=== PATIENT | male | born 1980 | race Caucasian/White ===

== ENCOUNTER 2017-04-15 03:37 | Observation (INO) | payer OTHER ==
[2017-04-15] MEDS ORDERED: LORazepam 2 MG/ML INJ IV STA (03:57)
--- NOTE | 2017-04-15 04:02 | ED ---
General Adult HPI - General Chief complaint: Seizure Stated complaint: Seizure Time Seen by Provider: 04/15/17 03:40 Source: patient, family, EMS, RN notes reviewed Mode of arrival: EMS Limitations: altered mental status, physical limitation - History of Present Illness Initial comments: Patient is a pleasant 37-year-old male presenting to the emergency Department with seizure. Patient was drinking alcohol earlier. Patient had an episode of vomiting and seizure. Family believes patient did hit his head once or twice. Patient does have a history of chronic seizures. Patient states he has seizures once or twice daily. Patient states he was taken off seizure medication. Patient states later that he took himself off seizure medication. Patient states he has not taken his medication in quite a while. Patient does have chronic pain on a fall 6 years ago. Patient has a history of neck problems. Patient states he cannot move his legs. EMS reports that they did witness patient moving his legs on his own. Patient originally denies any history of drug use. Patient and family later state that he has not used drugs in a year. - Related Data Home Medications Medication Instructions Recorded Confirmed DULoxetine HCL 60 mg PO DAILY 09/20/13 12/16/14 HYDROcodone/APAP 10-325MG [[place] 1 each PO BID PRN 09/20/13 12/16/14 10] Diazepam [Valium] 1 tab PO TID 12/16/14 12/16/14 QUEtiapine FUMARATE 1 tab PO HS 12/16/14 12/16/14 Allergies Allergy/AdvReac Type Severity Reaction Status Date / Time No Known Allergies Allergy Verified 12/16/14 19:55 Review of Systems ROS Statement: Those systems with pertinent positive or pertinent negative responses have been documented in the HPI. ROS Other: All systems not noted in ROS Statement are negative. Constitutional: Denies: fever Eyes: Denies: eye pain ENT: Denies: ear pain Respiratory: Denies: cough Cardiovascular: Denies: chest pain Endocrine: Denies: fatigue Gastrointestinal: Denies: abdominal pain Genitourinary: Denies: dysuria Musculoskeletal: Denies: back pain Skin: Denies: rash Neurological: Reports: confusion Past Medical History Past Medical History: Seizure Disorder Additional Past Medical History / Comment(s): closed head injury. back pain. ankle fracture bilateral History of Any Multi-Drug Resistant Organisms: None Reported Additional Past Surgical History / Comment(s): cervical disc fusion. Past Psychological History: Anxiety, Depression Smoking Status: Current every day smoker Past Alcohol Use History: None Reported Past Drug Use History: Marijuana General Exam Limitations: altered mental status, physical limitation General appearance: alert, in no apparent distress Head exam: Present: normocephalic, other (Mild tenderness to the back of the head) Eye exam: Present: normal appearance, PERRL, EOMI, nystagmus ENT exam: Present: normal oropharynx Neck exam: Present: normal inspection. Absent: tenderness Respiratory exam: Present: normal lung sounds bilaterally Cardiovascular Exam: Present: regular rate, normal rhythm GI/Abdominal exam: Present: soft. Absent: tenderness Extremities exam: Present: normal inspection Neurological exam: Present: alert, altered, CN II-XII intact Expanded Neurological exam: Present: protecting the airway, other (Patient states he cannot feel or move his legs. Patient does withdrawal to pain from each extremity.) Patient oriented to: Present: person. Absent: place, time Cranial nerves: EOM's Intact: Normal Sensory exam: Upper Extremity Light Touch: Normal Motor strength exam: RUE: 5, LUE: 5 Eye Response: (4) open spontaneously Motor Response: (6) obeys commands Verbal Response: (4) confused conversation Psychiatric exam: Present: normal affect, normal mood Skin exam: Present: normal color Course Vital Signs 04/15/17 04/15/17 04/15/17 03:42 04:25 05:04 Pulse Rate 118 H 100 90 Respiratory 18 18 18 Rate Blood Pressure 141/74 129/78 115/61 O2 Sat by Pulse 96 97 98 Oximetry EKG Findings - EKG Comments: EKG Findings:: Sinus tachycardia 108. AK 162. QRS 98. QT 366. QTc 490. Normal axis. Normal QRS. No acute ST change. Medical Decision Making - Medical Decision Making Patient reevaluated and remains postictal. Family is present. Patient denies any new back pain. Reexamine of the back still reveals no tenderness. Still unable to fully assess strength and sensation of the legs. Patient does move legs however does not feel he is moving them normally. Case was discussed in detail with Dr. Bob, who will admit his patient. Neurology will be consulted. Patient will be started on Dilantin. - Lab Data Result diagrams: 04/15/17 03:53 04/15/17 03:53 Lab Results 04/15/17 04/15/17 04/15/17 Range/Units 03:53 03:53 03:53 WBC 17.2 H (3.8-10.6) k/uL RBC 4.80 (4.30-5.90) m/uL Hgb 15.7 (13.0-17.5) gm/dL Hct 44.5 (39.0-53.0) % MCV 92.7 (80.0-100.0) fL MCH 32.7 (25.0-35.0) pg MCHC 35.3 (31.0-37.0) g/dL RDW 13.5 (11.5-15.5) % Plt Count 274 (150-450) k/uL Neutrophils % 88 % Lymphocytes % 7 % Monocytes % 4 % Eosinophils % 0 % Basophils % 0 % Neutrophils # 15.0 H (1.3-7.7) k/uL Lymphocytes # 1.2 (1.0-4.8) k/uL Monocytes # 0.7 (0-1.0) k/uL Eosinophils # 0.1 (0-0.7) k/uL Basophils # 0.0 (0-0.2) k/uL Sodium 140 (137-145) mmol/L Potassium 4.3 (3.5-5.1) mmol/L Chloride 105 (98-107) mmol/L Carbon Dioxide 20 L (22-30) mmol/L Anion Gap 15 mmol/L BUN 13 (9-20) mg/dL Creatinine 1.30 H (0.66-1.25) mg/dL Est GFR (MDRD) Af Amer >60 (>60 ml/min/1.73 sqM) Est GFR (MDRD) Non-Af >60 (>60 ml/min/1.73 sqM) Glucose 107 H (74-99) mg/dL Calcium 9.0 (8.4-10.2) mg/dL Total Bilirubin 0.3 (0.2-1.3) mg/dL AST 31 (17-59) U/L ALT 36 (21-72) U/L Alkaline Phosphatase 51 (38-126) U/L Total Protein 6.6 (6.3-8.2) g/dL Albumin 4.1 (3.5-5.0) g/dL Urine Color Light Yellow Urine Appearance Clear (Clear) Urine pH 5.5 (5.0-8.0) Ur Specific [place] 1.005 (1.001-1.035) Urine Protein Negative (Negative) Urine Glucose (UA) Negative (Negative) Urine Ketones Negative (Negative) Urine Blood Negative (Negative) Urine Nitrite Negative (Negative) Urine Bilirubin Negative (Negative) Urine Urobilinogen <2.0 (<2.0) mg/dL Ur Leukocyte Esterase Negative (Negative) Urine Opiates Screen Not Detected (NotDetected) Ur Oxycodone Screen Not Detected (NotDetected) Urine Methadone Screen Not Detected (NotDetected) Ur Propoxyphene Screen Not Detected (NotDetected) Ur Barbiturates Screen Not Detected (NotDetected) U Tricyclic Antidepress Not Detected (NotDetected) Ur Phencyclidine Scrn Not Detected (NotDetected) Ur Amphetamines Screen Not Detected (NotDetected) U Methamphetamines Scrn Not Detected (NotDetected) U Benzodiazepines Scrn Detected H (NotDetected) Urine Cocaine Screen Not Detected (NotDetected) U Marijuana (THC) Screen Detected H (NotDetected) Serum Alcohol 107 mg/dL - Radiology Data Radiology results: report reviewed (Computed tomography scan of the brain and cervical spine show no acute process.) Disposition Clinical Impression: Generalized seizure Disposition: ADMITTED IP TO THIS [facility] Referrals: Vicente Bob MD [Primary Care Provider] - 1-2 days Decision Time: 05:41
[2017-04-15 04:29] LABS: Basophils % (A) 0 %; Eosinophils # (A) 0.1 k/uL (0-0.7); Eosinophils % (A) 0 %; HCT 44.5 % (39.0-53.0); HGB 15.7 gm/dL (13.0-17.5); Lymphocytes # (A) 1.2 k/uL (1.0-4.8); Lymphocytes % (A) 7 %; MCH 32.7 pg (25.0-35.0); MCHC 35.3 g/dL (31.0-37.0); MCV 92.7 fL (80.0-100.0); Mean Platelet Volume 7.5; Monocytes # (A) 0.7 k/uL (0-1.0); Monocytes % (A) 4 %; Neutrophils % (A) 88 %; Platelet Count 274 k/uL (150-450); RDW 13.5 % (11.5-15.5); WBC 17.2 k/uL (3.8-10.6)
[2017-04-15 04:35] LABS: Appearance,Urine Clear (Clear); Bilirubin,Urine Negative (Negative); Blood,Urine Negative (Negative); Color,Urine Light Yellow; Glucose,Urine (UA) Negative (Negative); Ketones,Urine Negative (Negative); Leukocyte Esterase,Urine Negative (Negative); Nitrite,Urine Negative (Negative); PH, Urine 5.5 (5.0-8.0); Protein,Urine Negative (Negative); Specific Gravity,Urine 1.005 (1.001-1.035); Urobilinogen,Urine <2.0 mg/dL (<2.0)
[2017-04-15 04:40] LABS: ALT 36 U/L (21-72); AST 31 U/L (17-59); Albumin 4.1 g/dL (3.5-5.0); Alkaline Phosphatase 51 U/L (38-126); Anion Gap 15 mmol/L; Blood Urea Nitrogen 13 mg/dL (9-20); Carbon Dioxide 20 mmol/L (22-30); Chloride 105 mmol/L (98-107); Glucose 107 mg/dL (74-99); Potassium 4.3 mmol/L (3.5-5.1); Sodium 140 mmol/L (137-145); Total Bilirubin 0.3 mg/dL (0.2-1.3); Total Protein 6.6 g/dL (6.3-8.2)
--- NOTE | 2017-04-15 04:40 | CT ---
EXAM: CT Head Without Intravenous Contrast CLINICAL HISTORY: Reason: seizure TECHNIQUE: Axial computed tomography images of the head/brain without intravenous contrast. CTDI is 57.4 mGy and DLP is 511.2 mGy-cm. This CT exam was performed using one or more of the following dose reduction techniques: automated exposure control, adjustment of the mA and/or kV according to patient size, and/or use of iterative reconstruction technique. COMPARISON: MRI dated 08/03/15 FINDINGS: Brain: Unremarkable. No hemorrhage. No significant white matter disease. No edema. Ventricles: Unremarkable. No ventriculomegaly. Bones/joints: Unremarkable. No acute fracture. Soft tissues: Unremarkable. Sinuses: Mild mucosal thickening in the maxillary sinuses bilaterally. Mastoid air cells: Unremarkable as visualized. No mastoid effusion. IMPRESSION: No acute findings. EXAM: CT Cervical Spine Without Intravenous Contrast CLINICAL HISTORY: Reason: seizure TECHNIQUE: Axial computed tomography images of the cervical spine without intravenous contrast. CTDI is mGy and DLP is mGy-cm. This CT exam was performed using one or more of the following dose reduction techniques: automated exposure control, adjustment of the mA and/or kV according to patient size, and/or use of iterative reconstruction technique. COMPARISON: None FINDINGS: Vertebrae: Unremarkable. No acute fracture. Discs/spinal canal/neural foramina: Status post anterior cervical disc fusion at the C6-C7 level without evidence of hardware Occasion. Moderate severe degenerative disc disease at C5-C6 No spinal canal stenosis. Soft tissues: Unremarkable. Lung apices: Unremarkable as visualized. IMPRESSION: No acute fracture or subluxation. Status post anterior cervical disc fusion at C6-C7 without evidence of hardware complication.
[2017-04-15 04:49] LABS: Alcohol 107 mg/dL
[2017-04-15 04:50] LABS: Amphetamine Screen,Urine Not Detected (NotDetected); Barbiturate Screen,Urine Not Detected (NotDetected); Benzodiazepines Screen,Urine Detected (NotDetected); Cocaine Screen,Urine Not Detected (NotDetected); Methadone Screen, Urine Not Detected (NotDetected); Opiate Screen,Urine Not Detected (NotDetected); Oxycodone Screen, Urine Not Detected (NotDetected); Phencyclidine Screen,Urine Not Detected (NotDetected); Tricyclic Antidepressant,Urine Not Detected (NotDetected); Urn Cannabinoid Scrn Detected (NotDetected)
[2017-04-15] MEDS ORDERED: LORazepam 2 MG/ML INJ IV PRN (05:42)
[2017-04-15] MEDS ORDERED: NALOXONE 0.4 MG/ML 1 ML VIAL IV PRN (05:42)
[2017-04-15] MEDS ORDERED: PHENYTOIN SODIUM INJ 1,000 MG in SODIUM CHLORIDE 0.9% 100 ML IVPB STA (05:44)
[2017-04-15] MEDS: SODIUM CHLORIDE 0.9% 1,000 ML IV SCH (06:01)
--- NOTE | 2017-04-15 07:05 | CT ---
EXAM: CT Lumbar Spine Without Intravenous Contrast CLINICAL HISTORY: Seizure, leg weakness TECHNIQUE: Axial computed tomography images of the lumbar spine without intravenous contrast. DLP is 1034.80 mGy-cm. This CT exam was performed using one or more of the following dose reduction techniques: automated exposure control, adjustment of the mA and/or kV according to patient size, and/or use of iterative reconstruction technique. COMPARISON: No relevant prior studies available. FINDINGS: Vertebrae: Mild posterior facet hypertrophy seen. No acute fracture. Discs/spinal canal/neural foramina: No acute findings. No spinal canal stenosis. Soft tissues: Unremarkable. Kidneys and ureters: Punctate nonobstructing nephrolithiasis is seen bilaterally. IMPRESSION: No acute findings. MRI of the lumbar spine may be obtained for further evaluation, if clinically indicated.
[2017-04-15] MEDS: NICOTINE 21MG/24HR PATCH TRANSDERM SCH (09:21)
[2017-04-15] MEDS ORDERED: HYDROcodone/APAP 5-325MG 1 EACH TAB PO STA (11:11)
[2017-04-15] MEDS ORDERED: PREGABALIN 50 MG CAP PO SCH (12:00)
[2017-04-15] MEDS: FLUoxetine HCL 20 MG CAP PO SCH (12:52)
[2017-04-15] MEDS: IBUPROFEN 800 MG TAB PO PRN (12:52)
[2017-04-15] MEDS ORDERED: levETIRAcetam IV 1,000 MG in SALINE 1 100ML.BAG IVPB STA (14:24)
--- NOTE | 2017-04-15 14:42 | P.CONS ---
History of Present Illness - Reason for Consult Consult date: 04/15/17 Seizures - Chief Complaint seizures - History of Present Illness This is a pleasant 37-year-old male being evaluated by the neurology service for seizures. Sometime yesterday he had a couple drinks which he says he is not accustomed to. He started to have episodes of vomiting and dry heaves. He went into his bathroom. He was found on the floor by his and family members having a generalized tonic-clonic type seizure. The [facility] emergency room and he was quite postictal. There was some question of possible head and cervical injury. His CT of the head was negative. CT of the neck showed his known C6 7 fusion and C5 6 moderate disc displacement. There was no cervical some gnosis. There was no fracture. CT of the lumbar spine showed some mild facet joint arthropathy with no acute abnormalities. He has had no seizure activity since admission. He gives a history of a fall in 2010 at which time most of his medical problems started. Since then he has been diagnosed with PTSD and bipolar disorder. He has had surgeries of the cervical spine from Dr. Pepe Mariano in 2012 and 2014. He does have some residual left arm numbness and tingling occasionally. He says he was seen last month by a surgeon at [facility] and is considering another cervical surgery. For his seizures she has been tried on multiple seizure medications. He and his describe his seizures as a generalized type. He has symptoms which are consistent with nonconvulsive type about once a week, and convulsive types 3 or 4 times a year. He stopped all seizure medications a few months back and has recently been restarted on Topamax. He stopped this because of some possible confusion he was having on it. More recently he has been started on Lyrica 50 mg once a day and is tolerating that well. He was started on some Dilantin in the emergency room, but his says she thinks she had a problem with this medication. At the time of my exam he is resting comfortably in bed in no acute distress. Review of Systems All systems: negative Constitutional: Reports as per HPI Past Medical History Past Medical History: Seizure Disorder Additional Past Medical History / Comment(s): closed head injury. back pain. ankle fracture bilateral. Cervical fusion. PTSD. Bipolar disorder History of Any Multi-Drug Resistant Organisms: None Reported Additional Past Surgical History / Comment(s): cervical disc fusion. Past Psychological History: Anxiety, Bipolar, Depression, PTSD Smoking Status: Current every day smoker Past Alcohol Use History: None Reported, Occasional Past Drug Use History: Marijuana Medications and Allergies Home Medications Medication Instructions Recorded Confirmed Type Amitriptyline HCl [Elavil] 25 mg PO HS 04/15/17 04/15/17 History FLUoxetine HCL [PROzac] 40 mg PO DAILY 04/15/17 04/15/17 History Ibuprofen [Motrin] 800 mg PO TID PRN 04/15/17 04/15/17 History Meclizine [Antivert] 25 mg PO DAILY PRN 04/15/17 04/15/17 History Pregabalin [Lyrica] 50 mg PO DAILY 04/15/17 04/15/17 History Topiramate [Topamax] 25 mg PO BID 04/15/17 04/15/17 History Allergies Allergy/AdvReac Type Severity Reaction Status Date / Time No Known Allergies Allergy Verified 12/16/14 19:55 Physical Exam Vitals: Vital Signs Temp Pulse Pulse Resp BP BP Pulse Ox 04/15/17 07:00 97.0 F L 86 20 120/73 99 04/15/17 06:01 82 16 119/64 98 04/15/17 05:04 90 18 115/61 98 04/15/17 04:25 100 18 129/78 97 04/15/17 03:42 118 H 18 141/74 96 Intake and Output 04/14/17 04/15/17 04/15/17 22:59 06:59 14:59 Output Total 350 Balance -350 Output: Urine 350 Other: Weight 99.79 kg - Constitutional General appearance: average body habitus, cooperative, no acute distress - EENT Eyes: no abnormal pupil, EOMI, PERRLA, no ptosis ENT: hearing grossly normal - Neck Neck: normal ROM, no rigidity - Respiratory Respiratory: negative: prolonged expiration, prolonged inspiration - Cardiovascular Rhythm: regular - Gastrointestinal General gastrointestinal: no distended, no tenderness - Neurologic Patient is alert awake and oriented 3. Speech and language are normal. There is no facial asymmetry. Strength is full in bilateral upper lower extremities. There is a mild sensory deficit to his distal left upper extremity which is chronic, otherwise sensory exam is normal. There is no pronator drift. No tremors or seizure-like activities are seen. Results CBC & Chem 7: 04/15/17 03:53 04/15/17 03:53 Labs: Abnormal Lab Results - Last 24 Hours (Table) 04/15/17 04/15/17 04/15/17 Range/Units 03:53 03:53 03:53 WBC 17.2 H (3.8-10.6) k/uL Neutrophils # 15.0 H (1.3-7.7) k/uL Carbon Dioxide 20 L (22-30) mmol/L Creatinine 1.30 H (0.66-1.25) mg/dL Glucose 107 H (74-99) mg/dL U Benzodiazepines Scrn Detected H (NotDetected) U Marijuana (THC) Screen Detected H (NotDetected) Assessment and Plan (1) Cervicalgia Current Visit: Yes Status: Chronic Code(s): M54.2 - CERVICALGIA SNOMED Code(s): 26976043 (2) Failed cervical fusion Current Visit: Yes Status: Chronic Code(s): T84.9XXA - UNSP COMP OF INTERNAL ORTHOPEDIC PROSTH DEV/GRFT, INIT SNOMED Code(s): 1201627 (3) Hx of migraines Current Visit: Yes Status: Chronic Code(s): Z86.69 - PERSONAL HISTORY OF DIS OF THE NERVOUS SYS AND SENSE ORGANS SNOMED Code(s): 424653991 (4) Chronic pain Current Visit: Yes Status: Chronic Code(s): G89.29 - OTHER CHRONIC PAIN SNOMED Code(s): 55467475 (5) PTSD (post-traumatic stress disorder) Current Visit: Yes Status: Chronic Code(s): F43.10 - POST-TRAUMATIC STRESS DISORDER, UNSPECIFIED SNOMED Code(s): 36116782 (6) Generalized seizure Current Visit: Yes Status: Chronic Code(s): R56.9 - UNSPECIFIED CONVULSIONS SNOMED Code(s): 434971759 Plan: This patient with a known history of generalized seizure disorder has not been taking therapeutic doses of seizure medication. He has had reactions to a few seizure medications in the past. Recently he has been started on Lyrica 50 mg once daily which I will now increased to twice daily. He had been started on Dilantin in the ER, but his says she believes she had a reaction to this in the past. I will discontinue this and start with a loading dose of 1000 mg of Keppra IV piggyback followed by Keppra 500 mg every 12 hours. Continue seizure precautions. I have ordered an EEG. As far as his lower extremity deficits on admission, this was likely due to his significant postictal period. He has no lasting lower extremity neurological deficits at this time. We will continue to follow. I have performed a history and physical on the above patient. I have reviewed the above note, and agree.
[2017-04-15] MEDS ORDERED: PHENYTOIN SODIUM EXTENDED 100 MG CAP PO SCH (16:00)
--- NOTE | 2017-04-15 17:16 | HP ---
HISTORY AND PHYSICAL CHIEF COMPLAINT: Seizure. HISTORY OF PRESENT ILLNESS: This is the first known admission for this 37-year-old white male. He apparently had a seizure. He has had seizures in the past, but does not take any medication. When he came to the emergency room, he was unable to move his lower extremities from the waist down. This has now come back. It is felt that he is postictal at present. REVIEW OF SYSTEMS: He denies headaches, change in vision or hearing, chest pain, cough, hemoptysis, nausea vomiting, fever, chills, incontinence, etc. PAST MEDICAL HISTORY, FAMILY HISTORY, PERSONAL AND SOCIAL HISTORIES: Unremarkable and noncontributory. Otherwise, he is not allergic to any medication. He has had a procedure on his neck where he apparently fell, injured his neck and wound up for a fusion for a herniated disc. He takes: 1. Lyrica and. 2. Elavil. He does smoke. PHYSICAL EXAM: Blood pressure is 131/67 with a pulse of 70, respirations of 20 and he is afebrile. GENERAL: He appeared to be well developed, well nourished, in no acute distress. SKIN: Warm and dry. He is slightly he was a little bit lethargic. HEAD EARS, EYES, NOSE, MOUTH, AND THROAT: Normal. Eye findings were normal. NECK: Supple. There are no neck masses. CHEST: Clear. CARDIAC: Normal. ABDOMEN: Soft and nontender without any visceromegaly or masses. EXTREMITIES: Normal. NEUROLOGICAL: He seemed to be intact this time. IMPRESSION: 1. Grand mal seizure. 2. Postictal depression. 3. Transient paraplegia, etiology unknown. PLAN: 1. Bed rest. 2. IV fluids. 3. Neurology consult. 4. Frequent monitoring of his neurologic status and vital signs. MMODL / IJN: [id number] /
[2017-04-15 17:30] VITALS: BMI 29.8
[2017-04-15] MEDS: HYDROcodone/APAP 5-325MG 1 EACH TAB PO PRN (17:58)
[2017-04-15] MEDS: PREGABALIN 50 MG CAP PO SCH (20:29)
[2017-04-15] MEDS: levETIRAcetam 500 MG TAB PO SCH (20:29)
[2017-04-15] MEDS ORDERED: AMITRIPTYLINE HCL 25 MG TAB PO SCH (21:00)
[2017-04-16 03:34] VITALS: RESP 18
[2017-04-16] MEDS: SODIUM CHLORIDE 0.9% 1,000 ML IV SCH (06:15)
[2017-04-16] MEDS: IBUPROFEN 800 MG TAB PO PRN ×2 (08:24→15:42)
[2017-04-16] MEDS: NICOTINE 21MG/24HR PATCH TRANSDERM SCH (08:24)
[2017-04-16] MEDS: HYDROcodone/APAP 5-325MG 1 EACH TAB PO PRN ×2 (08:25→15:42)
[2017-04-16] MEDS: FLUoxetine HCL 20 MG CAP PO SCH (08:26)
[2017-04-16] MEDS: levETIRAcetam 500 MG TAB PO SCH (08:26)
[2017-04-16] MEDS: PREGABALIN 50 MG CAP PO SCH (08:37)
--- NOTE | 2017-04-16 13:07 | P.PN ---
Subjective Progress Note Date: 04/16/17 Principal diagnosis: Seizures Physical pleasant 37-year-old male continuing to be evaluated by the neurology service for seizures. He had been noncompliant with his seizure medications. We started him on a loading dose of IV Keppra and have switched to Keppra 500 mg twice daily. We also increased his Lyrica to 500 twice a day which was the plan implemented by his primary care physician. He also takes this for neuropathic pain. Recall that he has a history of C6 [address] in the ER showed no new abnormalities. He said no seizure activity since his admission. He is tolerating the Keppra well. At the time my exam he is resting comfortably in bed sitting up eating his lunch. Objective - Vital Signs Vital signs: Vital Signs Temp 96.8 F L 04/16/17 07:00 Pulse 87 04/16/17 07:00 Resp 18 04/16/17 07:00 BP 98/60 04/16/17 07:00 Pulse Ox 100 04/16/17 07:00 Intake & Output 04/15/17 04/16/17 04/16/17 18:59 06:59 18:59 Intake Total 580 400 240 Output Total 350 350 Balance 230 400 -110 Weight 99.79 kg 99.79 kg Intake: Intake, IV Titration 100 Amount levETIRAcetam IV 1,000 mg 100 In Saline 1 100ml.bag @ 400 mls/hr IVPB ONCE STA Rx#:[id number] Oral 480 400 240 Output: Urine 350 350 Other: Voiding Method Urinal Toilet Toilet Urinal Urinal # Voids 2 3 3 # Bowel Movements 0 - Constitutional General appearance: Present: average body habitus, cooperative, mild distress - EENT Eyes: Present: EOMI, PERRLA. Absent: abnormal pupil, ptosis ENT: Present: hearing grossly normal - Neck Neck: Present: normal ROM. Absent: rigidity - Respiratory Respiratory: negative: prolonged expiration, prolonged inspiration - Cardiovascular Rhythm: regular - Neurologic Neurologic Comment(s): Is alert awake and oriented 3. Speech-language are normal. There is no facial asymmetry. Strength is full in bilateral upper lower extremities. There is no sensory deficit. No tremors or seizure-like activities are seen. - Labs CBC & Chem 7: 04/15/17 03:53 12/02/17 03:53 Assessment and Plan (1) Cervicalgia Current Visit: Yes Status: Chronic Code(s): M54.2 - CERVICALGIA SNOMED Code(s): 65836987 (2) Failed cervical fusion Narrative/Plan: He has no implanted hardware Current Visit: Yes Status: Chronic Code(s): T84.9XXA - UNSP COMP OF INTERNAL ORTHOPEDIC PROSTH DEV/GRFT, INIT SNOMED Code(s): 2350625 (3) Hx of migraines Current Visit: Yes Status: Chronic Code(s): Z86.69 - PERSONAL HISTORY OF DIS OF THE NERVOUS SYS AND SENSE ORGANS SNOMED Code(s): 396682794 (4) Chronic pain Current Visit: Yes Status: Chronic Code(s): G89.29 - OTHER CHRONIC PAIN SNOMED Code(s): 41265218 (5) PTSD (post-traumatic stress disorder) Current Visit: Yes Status: Chronic Code(s): F43.10 - POST-TRAUMATIC STRESS DISORDER, UNSPECIFIED SNOMED Code(s): 79340102 (6) Generalized seizure Current Visit: Yes Status: Chronic Code(s): R56.9 - UNSPECIFIED CONVULSIONS SNOMED Code(s): 862620546 Plan: This patient with a known history of generalized seizure disorder has not been taking therapeutic doses of seizure medication. He has had reactions to a few seizure medications in the past. Recently he has been started on Lyrica 50 mg once daily which I have increased to twice daily. He had been started on Dilantin in the ER, but his says she believes he had a reaction to this in the past. I did discontinue this and started with a loading dose of 1000 mg of Keppra IV piggyback followed by Keppra 500 mg every 12 hours. He is tolerating this well and has had no seizure activity. Continue seizure precautions. I have ordered an EEG . As far as his lower extremity deficits on admission, this was likely due to his significant postictal period. He has no lasting lower extremity neurological deficits at this time. I will have physical and occupational therapy assess him. We will continue to follow. He and his were advised that according to [facility] law one cannot drive for 6 months after a seizure. I have performed a history and physical on the above patient. I have reviewed the above note, and agree.
[2017-04-16 15:39] VITALS: BP 116/67; PULSE 97; TEMP 97.1
--- NOTE | 2017-04-16 18:41 | DS ---
DISCHARGE SUMMARY CHIEF COMPLAINT: Seizure. HISTORY OF PRESENT ILLNESS AND PHYSICAL EXAM: Details of this man's history and physical can be found in the initial workup. LABORATORY STUDIES: While he was in a hospital, he had laboratory studies, details which can be found in the laboratory section of chart. COURSE IN HOSPITAL: After admission, he was placed in bedrest, started on intravenous fluids and seizure precautions. He was seen by Neurology. was increased in and Keppra was added and he was doing well. It was felt he could go home on the . He will be seen in the office in several days. FINAL DIAGNOSIS: Grand mal seizure. OPERATION: None. CONSULTATION: Neurology. He is improved. MMODL / IJN: [id number] /
== END 2017-04-16 15:51 | disposition home or self-care (01) ==
LOC: EC 03:37 → 4MS4W 05:42 → INTOOBSV 05:42
PROVIDERS: ADMIT Family Medicine; ATTEND Family Medicine
DX: G40.409 Other generalized epilepsy and epileptic syndromes, not intractable, without status epilepticus (principal); M50.223 Other cervical disc displacement at C6-C7 level; G89.29 Other chronic pain; F31.9 Bipolar disorder, unspecified; F43.10 Post-traumatic stress disorder, unspecified; F41.9 Anxiety disorder, unspecified; Z91.19 Patient's noncompliance with other medical treatment and regimen; T84.9XXA Unspecified complication of internal orthopedic prosthetic device, implant and graft, initial encounter; Z98.1 Arthrodesis status; F17.200 Nicotine dependence, unspecified, uncomplicated; F12.90 Cannabis use, unspecified, uncomplicated; Z79.899 Other long term (current) drug therapy; Z87.820 Personal history of traumatic brain injury; Z91.81 History of falling; Z86.69 Personal history of other diseases of the nervous system and sense organs
CPT/HCPCS: 99285 ×2; 96365 ×2; 96361 ×2; 96366; 96375; 36415; 93005; 80053; 85025; 81003; 80306; 80320; 72125; 72131; 70450; G0378 ×2; S4990 ×2; J1165; J1953

== ENCOUNTER 2017-05-11 15:56 | Emergency (ER) | payer OTHER ==
[2017-05-11] MEDS ORDERED: SODIUM CHLORIDE 0.9% 1,000 ML IV STA (16:50)
[2017-05-11] MEDS ORDERED: DIAZEPAM 5 MG TAB PO STA (16:50)
[2017-05-11] MEDS ORDERED: MECLIZINE 12.5 MG TAB PO STA (16:50)
[2017-05-11] MEDS ORDERED: METOCLOPRAMIDE 5 MG/ML 2 ML VIAL IVP STA (16:51)
--- NOTE | 2017-05-11 16:56 | ED ---
General Adult HPI - General Chief complaint: Headache Stated complaint: seizures Time Seen by Provider: 05/11/17 16:40 Source: patient, RN notes reviewed, old records reviewed Mode of arrival: wheelchair Limitations: no limitations - History of Present Illness Initial comments: Patient is a 37-year-old male who presents emergency room today with chief complaint of feeling dizzy lightheaded that began approximately 2 hours ago. He does admit to a history of a fall occurred 6 years ago. He states that he's had neck surgery. States had migraines. He states he has chronic back and neck pain since this fall. His does admit that his had symptoms of vertigo the past was on Antivert no longer taking this over the last few months. He states he's had these episodes of dizziness and lightheadedness. He describes it as the room spinning. He states had this in the past and he was prescribed Antivert which seemed to help. At this time is not had in several months. Patient does admit to a headache. He does admit to history of migraines. He denies any new changes in these symptoms. States he did just start just approximately 2 hours ago. Patient denies any recent fever, chills, shortness of breath, chest pain, back pain, abdominal pain, vomiting, numbness or tingling , dysuria or hematuria, constipation or diarrhea, visual changes, or any other complaints. - Related Data Home Medications Medication Instructions Recorded Confirmed Amitriptyline HCl [Elavil] 25 mg PO HS 04/15/17 05/11/17 FLUoxetine HCL [PROzac] 40 mg PO DAILY 04/15/17 05/11/17 Ibuprofen [Motrin] 800 mg PO TID PRN 04/15/17 05/11/17 Meclizine [Antivert] 25 mg PO DAILY PRN 05/11/17 05/11/17 Previous Rx's Medication Instructions Recorded Pregabalin [Lyrica] 50 mg PO BID #60 cap 04/16/17 levETIRAcetam [Keppra] 500 mg PO Q12HR #60 tab 04/16/17 Meclizine [Antivert] 25 mg PO DAILY 14 Days tab 05/11/17 Allergies Allergy/AdvReac Type Severity Reaction Status Date / Time No Known Allergies Allergy Verified 05/11/17 17:20 Review of Systems ROS Statement: Those systems with pertinent positive or pertinent negative responses have been documented in the HPI. ROS Other: All systems not noted in ROS Statement are negative. Past Medical History Past Medical History: Seizure Disorder Additional Past Medical History / Comment(s): closed head injury. back pain. ankle fracture bilateral. Cervical fusion. PTSD. Bipolar disorder History of Any Multi-Drug Resistant Organisms: None Reported Additional Past Surgical History / Comment(s): cervical disc fusion. Past Psychological History: Anxiety, Bipolar, Depression, PTSD Smoking Status: Current every day smoker Past Alcohol Use History: Occasional Past Drug Use History: Marijuana - Past Family History Mother Family Medical History: Unable to Obtain General Exam - General Exam Comments Initial Comments: General: The patient is awake and alert, in no distress, and does not appear acutely ill. Eye: Pupils are equal, round and reactive to light, extra-ocular movements are intact. No nystagmus. There is normal conjunctiva bilaterally. No signs of icterus. Ears, nose, mouth and throat: There are moist mucous membranes and no oral lesions. Neck: The neck is supple, there is no tenderness or JVD. Cardiovascular: There is a regular rate and rhythm. No murmur, rub or gallop is appreciated. Respiratory: Lungs are clear to auscultation, respirations are non-labored, breath sounds are equal. No wheezes, stridor, rales, or rhonchi. Gastrointestinal: Soft, non-distended, non-tender abdomen without masses or organomegaly noted. There is no rebound or guarding present. No CVA tenderness. Bowel sounds are unremarkable. Musculoskeletal: Normal ROM, no tenderness. Strength 5/5. Sensation intact. Pulses equal bilaterally 2+. Neurological: A&O x 3. CN II-XII intact, There are no obvious motor or sensory deficits. Coordination appears grossly intact. Speech is normal. Skin: Skin is warm and dry and no rashes or lesions are noted. Psychiatric: Cooperative, appropriate mood & affect, normal judgment. Limitations: no limitations Course Vital Signs 05/11/17 16:21 Temperature 98.9 F Pulse Rate 121 H Respiratory 18 Rate Blood Pressure 138/91 O2 Sat by Pulse 99 Oximetry Medical Decision Making - Medical Decision Making Patient reexamined at this time shows no signs of distress. He is resting comfortable. Does admit to improvement of times after medications. Patient's labs been reviewed. Patient does not that his had previous symptoms in the past with the dizziness. He states was improved by the end of her. Patient also admits to migraine and similar headaches in the past with chronic neck and back pain. Patient is advised follow-up with his neurologist as scheduled to see them in the past but missed the appointment. States he does see Dr. Larson who is on-call today. Advised patient to follow-up with neurology and family doctor. Patient will be given a prescription for meclizine for his symptoms. Advised to return to emergency room symptoms increase worsen. - Lab Data Result diagrams: 05/11/17 17:05 05/11/17 17:05 Lab Results 05/11/17 05/11/17 Range/Units 17:05 17:05 WBC 10.7 H (3.8-10.6) k/uL RBC 5.31 (4.30-5.90) m/uL Hgb 16.7 (13.0-17.5) gm/dL Hct 49.1 (39.0-53.0) % MCV 92.5 (80.0-100.0) fL MCH 31.4 (25.0-35.0) pg MCHC 33.9 (31.0-37.0) g/dL RDW 14.4 (11.5-15.5) % Plt Count 285 (150-450) k/uL Neutrophils % 81 % Lymphocytes % 12 % Monocytes % 4 % Eosinophils % 1 % Basophils % 0 % Neutrophils # 8.7 H (1.3-7.7) k/uL Lymphocytes # 1.3 (1.0-4.8) k/uL Monocytes # 0.4 (0-1.0) k/uL Eosinophils # 0.1 (0-0.7) k/uL Basophils # 0.0 (0-0.2) k/uL Sodium 135 L (137-145) mmol/L Potassium 5.2 H (3.5-5.1) mmol/L Chloride 104 (98-107) mmol/L Carbon Dioxide 25 (22-30) mmol/L Anion Gap 6 mmol/L BUN 16 (9-20) mg/dL Creatinine 1.12 (0.66-1.25) mg/dL Est GFR (MDRD) Af Amer >60 (>60 ml/min/1.73 sqM) Est GFR (MDRD) Non-Af >60 (>60 ml/min/1.73 sqM) Glucose 91 (74-99) mg/dL Calcium 9.2 (8.4-10.2) mg/dL Total Bilirubin 0.5 (0.2-1.3) mg/dL AST 44 (17-59) U/L ALT 31 (21-72) U/L Alkaline Phosphatase 65 (38-126) U/L Total Protein 6.8 (6.3-8.2) g/dL Albumin 4.0 (3.5-5.0) g/dL Disposition Clinical Impression: Dizziness, Migraine Disposition: HOME SELF-CARE Condition: Good Instructions: Vertigo (ED) Additional Instructions: Please use medication as discussed. Please follow-up with neurologist/family doctor in the next 2 days. Please return to emergency room if the symptoms increase or worsen or for any other concerns. Prescriptions: Meclizine [Antivert] 25 mg PO DAILY 14 Days tab Referrals: Pepe Kim DO [Primary Care Provider] - 1-2 days Mendoza Vanegas MD [STAFF PHYSICIAN] - 1-2 days Time of Disposition: 18:22
[2017-05-11 17:22] LABS: Basophils % (A) 0 %; CH 32.3; CHCM 35.1; Eosinophils # (A) 0.1 k/uL (0-0.7); Eosinophils % (A) 1 %; HCT 49.1 % (39.0-53.0); HDW 2.66; HGB 16.7 gm/dL (13.0-17.5); Luc # (Auto) 0.08; Luc % (Auto) 1; Lymphocytes # (A) 1.3 k/uL (1.0-4.8); Lymphocytes % (A) 12 %; MCH 31.4 pg (25.0-35.0); MCHC 33.9 g/dL (31.0-37.0); MCV 92.5 fL (80.0-100.0); Mean Platelet Volume 8.5; Monocytes # (A) 0.4 k/uL (0-1.0); Monocytes % (A) 4 %; Neutrophils # (A) 8.7 k/uL (1.3-7.7); Neutrophils % (A) 81 %; RBC 5.31 m/uL (4.30-5.90); RDW 14.4 % (11.5-15.5); WBC 10.7 k/uL (3.8-10.6); WBC (Perox) 10.98
[2017-05-11 17:49] LABS: ALT 31 U/L (21-72); AST 44 U/L (17-59); Alkaline Phosphatase 65 U/L (38-126); Anion Gap 6 mmol/L; Blood Urea Nitrogen 16 mg/dL (9-20); Calcium 9.2 mg/dL (8.4-10.2); Carbon Dioxide 25 mmol/L (22-30); Chloride 104 mmol/L (98-107); Glucose 91 mg/dL (74-99); Non-African American GFR(MDRD) >60 (>60 ml/min/1.73 sqM); Potassium 5.2 mmol/L (3.5-5.1); Sodium 135 mmol/L (137-145); Total Bilirubin 0.5 mg/dL (0.2-1.3); Total Protein 6.8 g/dL (6.3-8.2)
[2017-05-11 18:41] VITALS: BP 117/70; PULSE 85; RESP 17
[2017-05-11 18:51] VITALS: TEMP 98
== END 2017-05-11 18:52 | disposition home or self-care (01) ==
LOC: EC 15:56
DX: R42 Dizziness and giddiness (principal); G43.909 Migraine, unspecified, not intractable, without status migrainosus; F41.9 Anxiety disorder, unspecified; F31.9 Bipolar disorder, unspecified; F17.200 Nicotine dependence, unspecified, uncomplicated; Z79.899 Other long term (current) drug therapy
CPT/HCPCS: 36415; 93005; 80053; 85025; 99284; 96374; 96361 ×2; J2765

== ENCOUNTER 2017-06-01 16:28 | Emergency (ER) | payer OTHER ==
[2017-06-01 16:53] VITALS: RESP 18
[2017-06-01] MEDS ORDERED: SODIUM CHLORIDE 0.9% 1,000 ML IV ONE (18:13)
[2017-06-01] MEDS ORDERED: levETIRAcetam 500 MG TAB PO STA (18:14)
--- NOTE | 2017-06-01 18:22 | ED ---
Altered Mental Status HPI - General Chief Complaint: Altered Mental Status Stated Complaint: altered mental status Time Seen by Provider: 06/01/17 17:57 Source: patient, RN notes reviewed Mode of arrival: wheelchair Limitations: no limitations - History of Present Illness Initial Comments: This is a 37-year-old male with a history of seizures and posttraumatic stress disorder who presents with complaints of not feeling well feeling dizzy and generally not feeling well he's been off his medications for about a week he ran out of them. He states she's increased symptoms over last 3 days he denies any overt fevers chills nausea vomiting sweats. He did recently obtained her doctor and will be seen in next week. He's not sure if these had a seizure tonight he has found himself on the floor was or how he got there. He does complain of a headache no neck pain no loss of function is upper or lower extremities. He states having eating very well. He denies any drugs or alcohol. MD Complaint: confusion, other - Related Data Home Medications Medication Instructions Recorded Confirmed Amitriptyline HCl [Elavil] 25 mg PO HS 04/15/17 06/01/17 FLUoxetine HCL [PROzac] 40 mg PO DAILY 04/15/17 06/01/17 Ibuprofen [Motrin] 800 mg PO TID PRN 04/15/17 06/01/17 Meclizine [Antivert] 25 mg PO DAILY PRN 05/11/17 06/01/17 Pregabalin [Lyrica] 50 mg PO DAILY 06/01/17 06/01/17 Previous Rx's Medication Instructions Recorded levETIRAcetam [Keppra] 500 mg PO Q12HR #60 tab 04/16/17 Amitriptyline HCl [Elavil] 25 mg PO HS #7 tablet 06/01/17 FLUoxetine HCL [PROzac] 40 mg PO DAILY #7 cap 06/01/17 Ibuprofen 800 mg PO PC-TID PRN #20 tablet 06/01/17 Meclizine [Antivert] 25 mg PO DAILY PRN #7 tab 06/01/17 Pregabalin [Lyrica] 50 mg PO DAILY #7 cap 06/01/17 levETIRAcetam [Keppra] 500 mg PO Q12HR #14 tab 06/01/17 Allergies Allergy/AdvReac Type Severity Reaction Status Date / Time No Known Allergies Allergy Verified 06/01/17 19:00 Review of Systems ROS Statement: Those systems with pertinent positive or pertinent negative responses have been documented in the HPI. ROS Other: All systems not noted in ROS Statement are negative. Past Medical History Past Medical History: Seizure Disorder Additional Past Medical History / Comment(s): closed head injury. back pain. ankle fracture bilateral. Cervical fusion. PTSD. Bipolar disorder History of Any Multi-Drug Resistant Organisms: None Reported Additional Past Surgical History / Comment(s): cervical disc fusion. Past Psychological History: Anxiety, Bipolar, Depression, PTSD Smoking Status: Current every day smoker Past Alcohol Use History: Occasional Past Drug Use History: Marijuana - Past Family History Mother Family Medical History: Unable to Obtain General Exam - General Exam Comments Initial Comments: This is a well-developed well-nourished awake alert oriented 3 male Limitations: no limitations General appearance: alert, in no apparent distress Head exam: Present: atraumatic, normocephalic, normal inspection Eye exam: Present: normal appearance, PERRL, EOMI. Absent: scleral icterus, conjunctival injection, periorbital swelling ENT exam: Present: normal exam, mucous membranes moist Neck exam: Present: normal inspection. Absent: tenderness, meningismus, lymphadenopathy Respiratory exam: Present: normal lung sounds bilaterally. Absent: respiratory distress, wheezes, rales, rhonchi, stridor Cardiovascular Exam: Present: regular rate, normal rhythm, normal heart sounds. Absent: systolic murmur, diastolic murmur, rubs, gallop, clicks GI/Abdominal exam: Present: soft, normal bowel sounds. Absent: distended, tenderness, guarding, rebound, rigid Extremities exam: Present: normal inspection, full ROM, normal capillary refill. Absent: tenderness, pedal edema, joint swelling, calf tenderness Back exam: Present: normal inspection Neurological exam: Present: alert, oriented X3, CN II-XII intact Psychiatric exam: Present: normal mood, flat affect Skin exam: Present: warm, dry, intact, normal color. Absent: rash Course Vital Signs 06/01/17 16:49 Temperature 98.7 F Pulse Rate 94 Respiratory 18 Rate Blood Pressure 136/86 O2 Sat by Pulse 99 Oximetry Medical Decision Making - Medical Decision Making I did a long discussion with the patient and his regarding findings. Patient is likely suffering from withdrawal from his medications. He does have an appointment in [address] Valladares. Patient will be discharged on 1 week's worth of his medications that were he'll return if any problems. He is in agreement with this as is his . - Lab Data Result diagrams: 06/01/17 18:20 06/01/17 18:20 Lab Results 06/01/17 06/01/17 06/01/17 Range/Units 18:20 18:20 18:20 WBC 8.6 (3.8-10.6) k/uL RBC 5.41 (4.30-5.90) m/uL Hgb 16.8 (13.0-17.5) gm/dL Hct 50.2 (39.0-53.0) % MCV 92.9 (80.0-100.0) fL MCH 31.1 (25.0-35.0) pg MCHC 33.5 (31.0-37.0) g/dL RDW 14.0 (11.5-15.5) % Plt Count 364 (150-450) k/uL Neutrophils % 63 % Lymphocytes % 28 % Monocytes % 6 % Eosinophils % 1 % Basophils % 1 % Neutrophils # 5.5 (1.3-7.7) k/uL Lymphocytes # 2.4 (1.0-4.8) k/uL Monocytes # 0.5 (0-1.0) k/uL Eosinophils # 0.1 (0-0.7) k/uL Basophils # 0.0 (0-0.2) k/uL PT (9.0-12.0) sec INR (<1.2) APTT (22.0-30.0) sec Sodium 140 (137-145) mmol/L Potassium 4.6 (3.5-5.1) mmol/L Chloride 105 (98-107) mmol/L Carbon Dioxide 22 (22-30) mmol/L Anion Gap 13 mmol/L BUN 12 (9-20) mg/dL Creatinine 1.00 (0.66-1.25) mg/dL Est GFR (MDRD) Af Amer >60 (>60 ml/min/1.73 sqM) Est GFR (MDRD) Non-Af >60 (>60 ml/min/1.73 sqM) Glucose 83 (74-99) mg/dL Calcium 9.9 (8.4-10.2) mg/dL Magnesium 2.1 (1.6-2.3) mg/dL Total Bilirubin 0.6 (0.2-1.3) mg/dL AST 27 (17-59) U/L ALT 41 (21-72) U/L Alkaline Phosphatase 75 (38-126) U/L Ammonia (<30) umol/L Total Creatine Kinase 57 (55-170) U/L CK-MB (CK-2) 0.6 (0.0-2.4) ng/mL CK-MB (CK-2) Rel Index 1.1 Troponin I <0.012 (0.000-0.034) ng/mL Total Protein 8.0 (6.3-8.2) g/dL Albumin 4.7 (3.5-5.0) g/dL Urine Color Urine Appearance (Clear) Urine pH (5.0-8.0) Ur Specific [place] (1.001-1.035) Urine Protein (Negative) Urine Glucose (UA) (Negative) Urine Ketones (Negative) Urine Blood (Negative) Urine Nitrite (Negative) Urine Bilirubin (Negative) Urine Urobilinogen (<2.0) mg/dL Ur Leukocyte Esterase (Negative) Salicylates <1.0 mg/dL Urine Opiates Screen (NotDetected) Ur Oxycodone Screen (NotDetected) Urine Methadone Screen (NotDetected) Ur Propoxyphene Screen (NotDetected) Acetaminophen <10.0 ug/mL Ur Barbiturates Screen (NotDetected) U Tricyclic Antidepress (NotDetected) Ur Phencyclidine Scrn (NotDetected) Ur Amphetamines Screen (NotDetected) U Methamphetamines Scrn (NotDetected) U Benzodiazepines Scrn (NotDetected) Urine Cocaine Screen (NotDetected) U Marijuana (THC) Screen (NotDetected) Serum Alcohol <10 mg/dL 06/01/17 06/01/17 06/01/17 Range/Units 18:20 19:02 19:12 WBC (3.8-10.6) k/uL RBC (4.30-5.90) m/uL Hgb (13.0-17.5) gm/dL Hct (39.0-53.0) % MCV (80.0-100.0) fL MCH (25.0-35.0) pg MCHC (31.0-37.0) g/dL RDW (11.5-15.5) % Plt Count (150-450) k/uL Neutrophils % % Lymphocytes % % Monocytes % % Eosinophils % % Basophils % % Neutrophils # (1.3-7.7) k/uL Lymphocytes # (1.0-4.8) k/uL Monocytes # (0-1.0) k/uL Eosinophils # (0-0.7) k/uL Basophils # (0-0.2) k/uL PT 10.1 (9.0-12.0) sec INR 1.0 (<1.2) APTT 26.2 (22.0-30.0) sec Sodium (137-145) mmol/L Potassium (3.5-5.1) mmol/L Chloride (98-107) mmol/L Carbon Dioxide (22-30) mmol/L Anion Gap mmol/L BUN (9-20) mg/dL Creatinine (0.66-1.25) mg/dL Est GFR (MDRD) Af Amer (>60 ml/min/1.73 sqM) Est GFR (MDRD) Non-Af (>60 ml/min/1.73 sqM) Glucose (74-99) mg/dL Calcium (8.4-10.2) mg/dL Magnesium (1.6-2.3) mg/dL Total Bilirubin (0.2-1.3) mg/dL AST (17-59) U/L ALT (21-72) U/L Alkaline Phosphatase (38-126) U/L Ammonia 10 (<30) umol/L Total Creatine Kinase (55-170) U/L CK-MB (CK-2) (0.0-2.4) ng/mL CK-MB (CK-2) Rel Index Troponin I (0.000-0.034) ng/mL Total Protein (6.3-8.2) g/dL Albumin (3.5-5.0) g/dL Urine Color Urine Appearance (Clear) Urine pH (5.0-8.0) Ur Specific [place] (1.001-1.035) Urine Protein (Negative) Urine Glucose (UA) (Negative) Urine Ketones (Negative) Urine Blood (Negative) Urine Nitrite (Negative) Urine Bilirubin (Negative) Urine Urobilinogen (<2.0) mg/dL Ur Leukocyte Esterase (Negative) Salicylates mg/dL Urine Opiates Screen Not Detected (NotDetected) Ur Oxycodone Screen Not Detected (NotDetected) Urine Methadone Screen Not Detected (NotDetected) Ur Propoxyphene Screen Not Detected (NotDetected) Acetaminophen ug/mL Ur Barbiturates Screen Not Detected (NotDetected) U Tricyclic Antidepress Not Detected (NotDetected) Ur Phencyclidine Scrn Not Detected (NotDetected) Ur Amphetamines Screen Not Detected (NotDetected) U Methamphetamines Scrn Not Detected (NotDetected) U Benzodiazepines Scrn Detected H (NotDetected) Urine Cocaine Screen Not Detected (NotDetected) U Marijuana (THC) Screen Detected H (NotDetected) Serum Alcohol mg/dL 06/01/17 Range/Units 19:12 WBC (3.8-10.6) k/uL RBC (4.30-5.90) m/uL Hgb (13.0-17.5) gm/dL Hct (39.0-53.0) % MCV (80.0-100.0) fL MCH (25.0-35.0) pg MCHC (31.0-37.0) g/dL RDW (11.5-15.5) % Plt Count (150-450) k/uL Neutrophils % % Lymphocytes % % Monocytes % % Eosinophils % % Basophils % % Neutrophils # (1.3-7.7) k/uL Lymphocytes # (1.0-4.8) k/uL Monocytes # (0-1.0) k/uL Eosinophils # (0-0.7) k/uL Basophils # (0-0.2) k/uL PT (9.0-12.0) sec INR (<1.2) APTT (22.0-30.0) sec Sodium (137-145) mmol/L Potassium (3.5-5.1) mmol/L Chloride (98-107) mmol/L Carbon Dioxide (22-30) mmol/L Anion Gap mmol/L BUN (9-20) mg/dL Creatinine (0.66-1.25) mg/dL Est GFR (MDRD) Af Amer (>60 ml/min/1.73 sqM) Est GFR (MDRD) Non-Af (>60 ml/min/1.73 sqM) Glucose (74-99) mg/dL Calcium (8.4-10.2) mg/dL Magnesium (1.6-2.3) mg/dL Total Bilirubin (0.2-1.3) mg/dL AST (17-59) U/L ALT (21-72) U/L Alkaline Phosphatase (38-126) U/L Ammonia (<30) umol/L Total Creatine Kinase (55-170) U/L CK-MB (CK-2) (0.0-2.4) ng/mL CK-MB (CK-2) Rel Index Troponin I (0.000-0.034) ng/mL Total Protein (6.3-8.2) g/dL Albumin (3.5-5.0) g/dL Urine Color Light Yellow Urine Appearance Clear (Clear) Urine pH 7.0 (5.0-8.0) Ur Specific [place] 1.006 (1.001-1.035) Urine Protein Negative (Negative) Urine Glucose (UA) Negative (Negative) Urine Ketones Negative (Negative) Urine Blood Negative (Negative) Urine Nitrite Negative (Negative) Urine Bilirubin Negative (Negative) Urine Urobilinogen <2.0 (<2.0) mg/dL Ur Leukocyte Esterase Negative (Negative) Salicylates mg/dL Urine Opiates Screen (NotDetected) Ur Oxycodone Screen (NotDetected) Urine Methadone Screen (NotDetected) Ur Propoxyphene Screen (NotDetected) Acetaminophen ug/mL Ur Barbiturates Screen (NotDetected) U Tricyclic Antidepress (NotDetected) Ur Phencyclidine Scrn (NotDetected) Ur Amphetamines Screen (NotDetected) U Methamphetamines Scrn (NotDetected) U Benzodiazepines Scrn (NotDetected) Urine Cocaine Screen (NotDetected) U Marijuana (THC) Screen (NotDetected) Serum Alcohol mg/dL - EKG Data -: EKG Interpreted by Al EKG shows normal: sinus rhythm (Sinus rhythm of 70. Interval 164 QRS duration 84 QT since QTC of 412/[address]-T wave changes some artifact is present) - Radiology Data Radiology results: report reviewed (I did review the imaging and report or is evidence of right maxillary sinusitis otherwise unremarkable imaging study.), image reviewed Disposition Clinical Impression: Medication withdrawal, Chronic pain, Seizure disorder Disposition: HOME SELF-CARE Condition: Good Instructions: Epilepsy (ED) Additional Instructions: He will receive one week prescription of medication which should last until follow-up with your doctor. Prescriptions: Amitriptyline HCl [Elavil] 25 mg PO HS #7 tablet FLUoxetine HCL [PROzac] 40 mg PO DAILY #7 cap Ibuprofen 800 mg PO PC-TID PRN #20 tablet PRN Reason: Pain levETIRAcetam [Keppra] 500 mg PO Q12HR #14 tab Meclizine [Antivert] 25 mg PO DAILY PRN #7 tab PRN Reason: Vertigo Pregabalin [Lyrica] 50 mg PO DAILY #7 cap Referrals: Jordan Yarbrough MD [Primary Care Provider] - 1-2 days
[2017-06-01 18:59] LABS: Basophils % (A) 1 %; Eosinophils # (A) 0.1 k/uL (0-0.7); Eosinophils % (A) 1 %; HCT 50.2 % (39.0-53.0); HGB 16.8 gm/dL (13.0-17.5); Lymphocytes # (A) 2.4 k/uL (1.0-4.8); Lymphocytes % (A) 28 %; MCH 31.1 pg (25.0-35.0); MCHC 33.5 g/dL (31.0-37.0); MCV 92.9 fL (80.0-100.0); Monocytes # (A) 0.5 k/uL (0-1.0); Monocytes % (A) 6 %; Neutrophils # (A) 5.5 k/uL (1.3-7.7); Neutrophils % (A) 63 %; Platelet Count 364 k/uL (150-450); RBC 5.41 m/uL (4.30-5.90); WBC 8.6 k/uL (3.8-10.6)
[2017-06-01 19:05] LABS: Partial Thromboplastin Time 26.2 sec (22.0-30.0); Prothrombin Time 10.1 sec (9.0-12.0)
[2017-06-01 19:12] LABS: ALT 41 U/L (21-72); AST 27 U/L (17-59); Acetaminophen <10.0 ug/mL; Albumin 4.7 g/dL (3.5-5.0); Alcohol <10 mg/dL; Alkaline Phosphatase 75 U/L (38-126); Anion Gap 13 mmol/L; Blood Urea Nitrogen 12 mg/dL (9-20); Calcium 9.9 mg/dL (8.4-10.2); Carbon Dioxide 22 mmol/L (22-30); Chloride 105 mmol/L (98-107); Glucose 83 mg/dL (74-99); Magnesium 2.1 mg/dL (1.6-2.3); Potassium 4.6 mmol/L (3.5-5.1); Salicylate <1.0 mg/dL; Sodium 140 mmol/L (137-145); Total Bilirubin 0.6 mg/dL (0.2-1.3)
[2017-06-01 19:23] LABS: Creatine Kinase 57 U/L (55-170)
[2017-06-01 19:25] LABS: Appearance,Urine Clear (Clear); Bilirubin,Urine Negative (Negative); Blood,Urine Negative (Negative); Color,Urine Light Yellow; Glucose,Urine (UA) Negative (Negative); Ketones,Urine Negative (Negative); Leukocyte Esterase,Urine Negative (Negative); Nitrite,Urine Negative (Negative); Protein,Urine Negative (Negative); Specific Gravity,Urine 1.006 (1.001-1.035); Urobilinogen,Urine <2.0 mg/dL (<2.0)
[2017-06-01 19:35] LABS: Creatine Kinase MB 0.6 ng/mL (0.0-2.4); Troponin I <0.012 ng/mL (0.000-0.034)
[2017-06-01 19:36] LABS: Cocaine Screen,Urine Not Detected (NotDetected); Opiate Screen,Urine Not Detected (NotDetected); Phencyclidine Screen,Urine Not Detected (NotDetected); Urn Cannabinoid Scrn Detected (NotDetected)
[2017-06-01 19:37] LABS: Amphetamine Screen,Urine Not Detected (NotDetected); Barbiturate Screen,Urine Not Detected (NotDetected); Benzodiazepines Screen,Urine Detected (NotDetected); Methadone Screen, Urine Not Detected (NotDetected); Oxycodone Screen, Urine Not Detected (NotDetected); Tricyclic Antidepressant,Urine Not Detected (NotDetected)
[2017-06-01] MEDS ORDERED: KETOROLAC 30 MG/ML 1 ML VIAL IVP STA (19:37)
[2017-06-01] MEDS ORDERED: SODIUM CHLORIDE 0.9% 1,000 ML IV STA (19:37)
--- NOTE | 2017-06-01 19:42 | CT ---
EXAMINATION TYPE: CT brain wo con DATE OF EXAM: 06/01/2017 COMPARISON: 04/15/2017 HISTORY: Seizure activity x2 days. CT DLP: 1135 mGycm. Automated Exposure Control for Dose Reduction was Utilized. TECHNIQUE: CT scan of the head is performed without contrast. FINDINGS: Ventricles and sulci appear normal. There is no mass effect nor midline shift. There is n o sign of intracranial hemorrhage. There is some mucosal thickening in the right maxillary sinus. CONCLUSION: Right maxillary sinusitis. No acute intracranial abnormality. No change.
--- NOTE | 2017-06-01 19:43 | XR ---
EXAMINATION TYPE: XR chest 2V DATE OF EXAM: 06/01/2017 COMPARISON: NONE HISTORY: Altered mental status TECHNIQUE: Frontal and lateral views of the chest are obtained. FINDINGS: Heart and mediastinum are normal. Lungs are clear. Costophrenic angles are clear. Bony tho rax is intact. IMPRESSION: Normal chest
[2017-06-01 20:56] VITALS: BP 116/71; PULSE 83; TEMP 98.2
== END 2017-06-01 20:57 | disposition home or self-care (01) ==
LOC: EC 16:28
DX: G40.909 Epilepsy, unspecified, not intractable, without status epilepticus (principal); G89.29 Other chronic pain; F19.939 Other psychoactive substance use, unspecified with withdrawal, unspecified; J32.0 Chronic maxillary sinusitis; R41.0 Disorientation, unspecified; F32.9 Major depressive disorder, single episode, unspecified; F41.9 Anxiety disorder, unspecified; F17.200 Nicotine dependence, unspecified, uncomplicated; Z79.899 Other long term (current) drug therapy
CPT/HCPCS: 36415; 93005; 80053; 82140; 82550; 82553; 83735; 84484; 85025; 85610; 85730; 81003; 80306; 83520 ×2; 80320; 71046; 70450; 99285; 96374; 96361 ×2; J1885

== ENCOUNTER 2017-07-03 21:41 | Emergency (ER) | payer OTHER ==
[2017-07-03 21:45] VITALS: RESP 16
[2017-07-03] MEDS ORDERED: SODIUM CHLORIDE 0.9% 1,000 ML IV STA (22:25)
--- NOTE | 2017-07-03 22:38 | ED ---
Syncope HPI - General Chief Complaint: Seizure Stated Complaint: Back Pain Time Seen by Provider: 07/03/17 22:16 Source: patient Mode of arrival: ambulatory Limitations: no limitations - History of Present Illness Initial Comments: Patient presents with possible syncopal versus seizure episode. 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 Patient states he is on Keppra at home which she states she has been taking regularly. Patient states she has at home in his bedroom, lives with his grandmother and mother, states he woke up on his bedroom floor twice today not knowing what happened. Patient states he was doing normal activities in his room at the time. Patient does not recall any preceding symptoms. Patient does not recall any postictal symptoms. Patient states that he has seizures approximately 2-3 times per week. Patient states he is scheduled to see a new neurologist next week. States he schedules his primary care physician tomorrow. Patient denies recent illness, fevers, chills, nausea , vomiting, trouble breathing, chest pains, palpitations, shortness of breath, leg swelling, history of blood clots, headache, vision changes, numbness, weakness, speech problems, confusion. Patient states he uses medical marijuana. Smokes 2 cigarettes a day. Denies alcohol use or any other recreational drug use. Patient states his abdomen feels bloated, constipated. States he has only been passing small hard stools recently. Denies history of heart disease or irregular heartbeats. Patient denies any pain or injury from the syncopal episodes. History Limited as patient does not recall events of what happened. Patient states his mother and aunt who live with him did not hear or see anything. MD Complaint: loss of consciousness - Related Data Home Medications Medication Instructions Recorded Confirmed Acetaminophen [Tylenol] 1,000 mg PO Q6H PRN 07/03/17 07/03/17 Previous Rx's Medication Instructions Recorded Lacosamide [Vimpat] 50 mg PO BID tablet 06/13/17 levETIRAcetam [Keppra] 1,000 mg PO Q12HR tab 06/13/17 Amitriptyline HCl [Elavil] 25 mg PO HS #30 tab 06/14/17 FLUoxetine HCL [PROzac] 40 mg PO DAILY #30 cap 06/14/17 Ibuprofen [Motrin] 800 mg PO TID PRN #90 tab 06/14/17 Nicotine 21Mg/24Hr Patch [Habitrol] 1 patch TRANSDERM DAILY #30 patch 06/14/17 OLANZapine [ZyPREXA] 5 mg PO TID #90 tab 06/14/17 Allergies Allergy/AdvReac Type Severity Reaction Status Date / Time No Known Allergies Allergy Verified 07/03/17 22:33 Review of Systems ROS Statement: Those systems with pertinent positive or pertinent negative responses have been documented in the HPI. ROS Other: All systems not noted in ROS Statement are negative. Constitutional: Denies: fever, chills Eyes: Denies: vision change ENT: Denies: ear pain, throat pain, dental pain, congestion Respiratory: Denies: cough, dyspnea, wheezes, stridor Cardiovascular: Reports: syncope. Denies: chest pain, palpitations, dyspnea on exertion, edema Endocrine: Denies: fatigue Gastrointestinal: Reports: constipation. Denies: abdominal pain, nausea, vomiting, diarrhea Genitourinary: Denies: urgency, dysuria, frequency, hematuria Musculoskeletal: Denies: back pain, joint swelling, arthralgia, myalgia Skin: Denies: rash, lesions, change in color Neurological: Denies: headache, weakness, numbness, paresthesias, confusion Past Medical History Past Medical History: Seizure Disorder Additional Past Medical History / Comment(s): closed head injury. back pain. ankle fracture bilateral. Cervical fusion. PTSD. Bipolar disorder History of Any Multi-Drug Resistant Organisms: None Reported Additional Past Surgical History / Comment(s): cervical disc fusion. Past Psychological History: Anxiety, Bipolar, Depression, PTSD Smoking Status: Current every day smoker Past Alcohol Use History: Occasional Past Drug Use History: Marijuana - Past Family History Mother Family Medical History: Unable to Obtain General Exam - General Exam Comments Initial Comments: Patient sitting up in bed. No acute distress. Conversing normally. Calm, pleasant. Well appearing. Limitations: no limitations General appearance: alert, in no apparent distress Head exam: Present: atraumatic, normocephalic, other (No signs of head trauma) Eye exam: Present: normal appearance, PERRL, EOMI. Absent: periorbital swelling , periorbital tenderness ENT exam: Present: mucous membranes moist Neck exam: Present: normal inspection, lymphadenopathy, other (Full range of motion. No midline tenderness.). Absent: tenderness, meningismus, full ROM Respiratory exam: Present: normal lung sounds bilaterally. Absent: respiratory distress, wheezes, rales, rhonchi, stridor, accessory muscle use Cardiovascular Exam: Present: regular rate, normal rhythm GI/Abdominal exam: Present: soft, distended (Mild distention). Absent: tenderness, guarding, rebound, rigid Extremities exam: Present: normal inspection, full ROM. Absent: tenderness, pedal edema, joint swelling Back exam: Present: normal inspection. Absent: tenderness, paraspinal tenderness, vertebral tenderness Neurological exam: Present: alert, oriented X3, CN II-XII intact, other (No focal neuro deficits on exam. Pupils equal and reactive bilaterally. Eye movements intact bilaterally. Muscle strength 5 out of 5 in all x-rays.I asked coordinated. Sensation is intact in all extremities. No seizure activity. GCS 15). Absent: motor sensory deficit Psychiatric exam: Present: normal affect, normal mood Skin exam: Present: warm, dry, intact, normal color. Absent: rash, cyanosis, diaphoretic, erythema Course Vital Signs 07/03/17 21:43 Temperature 98.2 F Pulse Rate 87 Respiratory 16 Rate Blood Pressure 123/73 O2 Sat by Pulse 96 Oximetry Medical Decision Making - Medical Decision Making Patient had apparent single episodes today, although no witnesses, family did not hear anything happen. Patient unable to describe what he was doing in his room or when he is done today since he is episodes, unable to describe how long they lasted. She states she's been having seizures 2-3 times a week, states she is not currently see a neurologist however he was seen new one next week. Patient states he normally gets his Keppra prescriptions "from the hospital". Review of medical records show patient was admitted to hospital genera are the for recurrent seizures. Patient's Keppra dose was increased at that time. Patient was seen by neurosurgeon for his chronic pain, as well as pain management physician as well as psychiatry for his bipolar disorder at the time. EKG normal sinus rhythm heart rate 73, OR interval 160 ms, no ST or T-wave changes appreciated. No delta waves or signs of Brugada appreciated. No significant lab abnormalities and workup. Patient asymptomatic at baseline in the ER. No neurologic deficits. GCS 15. Conversing normally. No seizure activity in the ER. Chest x-ray shows subtle left subsegmental atelectasis, no other acute abnormalities. KUB shows no sign of obstruction. UA shows no sign of infection. UDS positive for antidepressant, benzo, marijuana. Patient mother updated with all results. Patient agrees to call his neurologist Dr. Vanegas in morning to discuss possible increase in Keppra dose. Patient instructed no driving or heavy machinery until cleared by neurology, he understands and agrees. Patient, & mother at bedside now, feel comfortable going home at this time. Patient has appointment scheduled in the morning for follow primary care physician. - Lab Data Result diagrams: 07/03/17 10:46 07/03/17 10:46 Lab Results 07/03/17 07/03/17 07/03/17 Range/Units 10:46 10:46 23:35 WBC 9.0 (3.8-10.6) k/uL RBC 4.35 (4.30-5.90) m/uL Hgb 13.9 (13.0-17.5) gm/dL Hct 40.0 (39.0-53.0) % MCV 91.9 (80.0-100.0) fL MCH 32.0 (25.0-35.0) pg MCHC 34.8 (31.0-37.0) g/dL RDW 14.2 (11.5-15.5) % Plt Count 326 (150-450) k/uL Neutrophils % 66 % Lymphocytes % 22 % Monocytes % 6 % Eosinophils % 3 % Basophils % 0 % Neutrophils # 6.0 (1.3-7.7) k/uL Lymphocytes # 2.0 (1.0-4.8) k/uL Monocytes # 0.6 (0-1.0) k/uL Eosinophils # 0.3 (0-0.7) k/uL Basophils # 0.0 (0-0.2) k/uL Sodium 140 (137-145) mmol/L Potassium 4.3 (3.5-5.1) mmol/L Chloride 107 (98-107) mmol/L Carbon Dioxide 24 (22-30) mmol/L Anion Gap 9 mmol/L BUN 19 (9-20) mg/dL Creatinine 1.12 (0.66-1.25) mg/dL Est GFR (MDRD) Af Amer >60 (>60 ml/min/1.73 sqM) Est GFR (MDRD) Non-Af >60 (>60 ml/min/1.73 sqM) Glucose 136 H (74-99) mg/dL Calcium 9.0 (8.4-10.2) mg/dL Magnesium 2.0 (1.6-2.3) mg/dL Total Bilirubin 0.2 (0.2-1.3) mg/dL Conjugated Bilirubin 0.0 (0.0-0.3) mg/dL Unconjugated Bilirubin 0.0 (0.0-1.1) mg/dL Delta Bilirubin 0.2 (0.0-0.2) mg/dL AST 30 (17-59) U/L ALT 52 (21-72) U/L Alkaline Phosphatase 58 (38-126) U/L Total Protein 5.9 L (6.3-8.2) g/dL Albumin 3.5 (3.5-5.0) g/dL Lipase 181 (23-300) U/L Urine Color Urine Appearance (Clear) Urine pH (5.0-8.0) Ur Specific [place] (1.001-1.035) Urine Protein (Negative) Urine Glucose (UA) (Negative) Urine Ketones (Negative) Urine Blood (Negative) Urine Nitrite (Negative) Urine Bilirubin (Negative) Urine Urobilinogen (<2.0) mg/dL Ur Leukocyte Esterase (Negative) Urine Opiates Screen Not Detected (NotDetected) Ur Oxycodone Screen Not Detected (NotDetected) Urine Methadone Screen Not Detected (NotDetected) Ur Propoxyphene Screen Not Detected (NotDetected) Ur Barbiturates Screen Not Detected (NotDetected) U Tricyclic Antidepress Detected H (NotDetected) Ur Phencyclidine Scrn Not Detected (NotDetected) Ur Amphetamines Screen Not Detected (NotDetected) U Methamphetamines Scrn Not Detected (NotDetected) U Benzodiazepines Scrn Detected H (NotDetected) Urine Cocaine Screen Not Detected (NotDetected) U Marijuana (THC) Screen Detected H (NotDetected) 07/03/17 Range/Units 23:38 WBC (3.8-10.6) k/uL RBC (4.30-5.90) m/uL Hgb (13.0-17.5) gm/dL Hct (39.0-53.0) % MCV (80.0-100.0) fL MCH (25.0-35.0) pg MCHC (31.0-37.0) g/dL RDW (11.5-15.5) % Plt Count (150-450) k/uL Neutrophils % % Lymphocytes % % Monocytes % % Eosinophils % % Basophils % % Neutrophils # (1.3-7.7) k/uL Lymphocytes # (1.0-4.8) k/uL Monocytes # (0-1.0) k/uL Eosinophils # (0-0.7) k/uL Basophils # (0-0.2) k/uL Sodium (137-145) mmol/L Potassium (3.5-5.1) mmol/L Chloride (98-107) mmol/L Carbon Dioxide (22-30) mmol/L Anion Gap mmol/L BUN (9-20) mg/dL Creatinine (0.66-1.25) mg/dL Est GFR (MDRD) Af Amer (>60 ml/min/1.73 sqM) Est GFR (MDRD) Non-Af (>60 ml/min/1.73 sqM) Glucose (74-99) mg/dL Calcium (8.4-10.2) mg/dL Magnesium (1.6-2.3) mg/dL Total Bilirubin (0.2-1.3) mg/dL Conjugated Bilirubin (0.0-0.3) mg/dL Unconjugated Bilirubin (0.0-1.1) mg/dL Delta Bilirubin (0.0-0.2) mg/dL AST (17-59) U/L ALT (21-72) U/L Alkaline Phosphatase (38-126) U/L Total Protein (6.3-8.2) g/dL Albumin (3.5-5.0) g/dL Lipase (23-300) U/L Urine Color Yellow Urine Appearance Clear (Clear) Urine pH 6.5 (5.0-8.0) Ur Specific [place] 1.027 (1.001-1.035) Urine Protein Trace H (Negative) Urine Glucose (UA) Negative (Negative) Urine Ketones Negative (Negative) Urine Blood Negative (Negative) Urine Nitrite Negative (Negative) Urine Bilirubin Negative (Negative) Urine Urobilinogen 2.0 (<2.0) mg/dL Ur Leukocyte Esterase Negative (Negative) Urine Opiates Screen (NotDetected) Ur Oxycodone Screen (NotDetected) Urine Methadone Screen (NotDetected) Ur Propoxyphene Screen (NotDetected) Ur Barbiturates Screen (NotDetected) U Tricyclic Antidepress (NotDetected) Ur Phencyclidine Scrn (NotDetected) Ur Amphetamines Screen (NotDetected) U Methamphetamines Scrn (NotDetected) U Benzodiazepines Scrn (NotDetected) Urine Cocaine Screen (NotDetected) U Marijuana (THC) Screen (NotDetected) Disposition Clinical Impression: Loss of consciousness Disposition: HOME SELF-CARE Condition: Good Instructions: Recurrent Seizures in Adults (ED) Additional Instructions: Follow-up at your scheduled appointment with primary care tomorrow. Call your neurologist tomorrow to discuss medication adjustments. Return to ER if new or worsening symptoms, including recurrence of syncope. Referrals: Sanjay Austin MD [Primary Care Provider] - 1-2 days Mendoza Vanegas MD [STAFF PHYSICIAN] - 1-2 days
[2017-07-03 23:01] LABS: Basophils % (A) 0 %; Eosinophils # (A) 0.3 k/uL (0-0.7); Eosinophils % (A) 3 %; HGB 13.9 gm/dL (13.0-17.5); Lymphocytes % (A) 22 %; MCHC 34.8 g/dL (31.0-37.0); MCV 91.9 fL (80.0-100.0); Monocytes # (A) 0.6 k/uL (0-1.0); Monocytes % (A) 6 %; Neutrophils % (A) 66 %; Platelet Count 326 k/uL (150-450); RBC 4.35 m/uL (4.30-5.90); RDW 14.2 % (11.5-15.5)
--- NOTE | 2017-07-03 23:01 | XR ---
EXAMINATION TYPE: XR chest 2V DATE OF EXAM: 07/03/2017 COMPARISON: 06/01/2017 HISTORY: Seizure activity. Found on the floor. TECHNIQUE: Frontal and lateral views of the chest are obtained. FINDINGS: Heart and mediastinum are normal. Lungs are clear of infiltrate. There is a small linear d ensity at the left lung base. There is no pleural effusion. Bony thorax is intact. IMPRESSION: New minimal subsegmental atelectasis at the left lung base. Normal heart.
--- NOTE | 2017-07-03 23:02 | XR ---
EXAMINATION TYPE: XR KUB DATE OF EXAM: 07/03/2017 COMPARISON: NONE HISTORY: Seizure activity. Abdominal pain. TECHNIQUE: 2 views FINDINGS: There is no sign of intestinal obstruction or pneumoperitoneum. Fecal pattern is normal. Th ere are no pathologic calcifications. Bowel gas pattern is normal. IMPRESSION: Nonacute abdomen.
[2017-07-03 23:11] LABS: ALT 52 U/L (21-72); AST 30 U/L (17-59); Albumin 3.5 g/dL (3.5-5.0); Alkaline Phosphatase 58 U/L (38-126); Anion Gap 9 mmol/L; Bilirubin, Delta 0.2 mg/dL (0.0-0.2); Blood Urea Nitrogen 19 mg/dL (9-20); Carbon Dioxide 24 mmol/L (22-30); Chloride 107 mmol/L (98-107); Glucose 136 mg/dL (74-99); Lipase 181 U/L (23-300); Potassium 4.3 mmol/L (3.5-5.1); Sodium 140 mmol/L (137-145); Total Bilirubin 0.2 mg/dL (0.2-1.3); Total Protein 5.9 g/dL (6.3-8.2)
[2017-07-03] MEDS ORDERED: KETOROLAC 30 MG/ML 1 ML VIAL IVP STA (23:44)
[2017-07-03 23:51] LABS: Appearance,Urine Clear (Clear); Bilirubin,Urine Negative (Negative); Blood,Urine Negative (Negative); Color,Urine Yellow; Glucose,Urine (UA) Negative (Negative); Ketones,Urine Negative (Negative); Leukocyte Esterase,Urine Negative (Negative); Nitrite,Urine Negative (Negative); PH, Urine 6.5 (5.0-8.0); Protein,Urine Trace (Negative); Specific Gravity,Urine 1.027 (1.001-1.035)
[2017-07-04 00:16] LABS: Amphetamine Screen,Urine Not Detected (NotDetected); Barbiturate Screen,Urine Not Detected (NotDetected); Benzodiazepines Screen,Urine Detected (NotDetected); Cocaine Screen,Urine Not Detected (NotDetected); Methadone Screen, Urine Not Detected (NotDetected); Opiate Screen,Urine Not Detected (NotDetected); Oxycodone Screen, Urine Not Detected (NotDetected); Phencyclidine Screen,Urine Not Detected (NotDetected); Tricyclic Antidepressant,Urine Detected (NotDetected); Urn Cannabinoid Scrn Detected (NotDetected)
[2017-07-04 00:35] VITALS: BP 128/70; PULSE 83; TEMP 98
== END 2017-07-04 00:34 | disposition home or self-care (01) ==
LOC: EC 21:41
DX: R55 Syncope and collapse (principal); R14.0 Abdominal distension (gaseous); J98.11 Atelectasis; F31.9 Bipolar disorder, unspecified; R40.2412 Glasgow coma scale score 13-15, at arrival to emergency department; G40.909 Epilepsy, unspecified, not intractable, without status epilepticus; F17.210 Nicotine dependence, cigarettes, uncomplicated
CPT/HCPCS: 36415; 93005; 80048; 80076; 83690; 83735; 85025; 81003; 80306; 71046; 74018; 99284; 96374; 96361; J1885

== ENCOUNTER 2017-10-01 15:12 | Emergency (ER) | payer OTHER ==
[2017-10-01 15:39] VITALS: TEMP 98.2
[2017-10-01] MEDS ORDERED: LORazepam 2 MG/ML INJ IV STA (16:01)
[2017-10-01] MEDS ORDERED: SODIUM CHLORIDE 0.9% 1,000 ML IV STA (16:01)
--- NOTE | 2017-10-01 16:07 | ED ---
General Adult HPI - General Chief complaint: Seizure Stated complaint: seizures Time Seen by Provider: 10/01/17 15:44 Source: patient, family, RN notes reviewed Mode of arrival: ambulatory Limitations: no limitations - History of Present Illness Initial comments: Patient is a pleasant 37-year-old male presenting to the emergency department with complaints of seizures. Patient does have chronic seizures once to twice daily for over 7 years. Patient states he has probably had 3-4 seizures today. Patient has been more sleepy today. Patient does have decreased memory of events that occurred yesterday. No trauma. No alcohol or street drug use. No recent illness. Patient states he has been taking his anticonvulsant medication. - Related Data Home Medications Medication Instructions Recorded Confirmed Acetaminophen [Tylenol] 1,000 mg PO Q6H PRN 07/03/17 07/03/17 Previous Rx's Medication Instructions Recorded Lacosamide [Vimpat] 50 mg PO BID tablet 06/13/17 levETIRAcetam [Keppra] 1,000 mg PO Q12HR tab 06/13/17 Amitriptyline HCl [Elavil] 25 mg PO HS #30 tab 06/14/17 FLUoxetine HCL [PROzac] 40 mg PO DAILY #30 cap 06/14/17 Ibuprofen [Motrin] 800 mg PO TID PRN #90 tab 06/14/17 Nicotine 21Mg/24Hr Patch [Habitrol] 1 patch TRANSDERM DAILY #30 patch 06/14/17 OLANZapine [ZyPREXA] 5 mg PO TID #90 tab 06/14/17 Allergies Allergy/AdvReac Type Severity Reaction Status Date / Time No Known Allergies Allergy Verified 10/01/17 15:39 Review of Systems ROS Statement: Those systems with pertinent positive or pertinent negative responses have been documented in the HPI. ROS Other: All systems not noted in ROS Statement are negative. Constitutional: Denies: fever Eyes: Denies: eye pain ENT: Denies: ear pain Respiratory: Denies: cough Cardiovascular: Denies: chest pain Endocrine: Reports: fatigue Gastrointestinal: Denies: abdominal pain Genitourinary: Denies: dysuria Musculoskeletal: Denies: back pain Skin: Denies: rash Neurological: Denies: weakness Past Medical History Past Medical History: Seizure Disorder Additional Past Medical History / Comment(s): closed head injury. back pain. ankle fracture bilateral. Cervical fusion. PTSD. Bipolar disorder History of Any Multi-Drug Resistant Organisms: None Reported Additional Past Surgical History / Comment(s): cervical disc fusion. Past Psychological History: Anxiety, Bipolar, Depression, PTSD Smoking Status: Current every day smoker Past Alcohol Use History: Occasional Past Drug Use History: Marijuana - Past Family History Mother Family Medical History: Unable to Obtain General Exam Limitations: no limitations General appearance: alert, in no apparent distress Head exam: Present: atraumatic, normocephalic Eye exam: Present: normal appearance, PERRL, EOMI. Absent: nystagmus ENT exam: Present: normal oropharynx Neck exam: Present: normal inspection Respiratory exam: Present: normal lung sounds bilaterally Cardiovascular Exam: Present: regular rate, normal rhythm GI/Abdominal exam: Present: soft. Absent: tenderness Extremities exam: Present: normal inspection Neurological exam: Present: alert, oriented X3, CN II-XII intact. Absent: motor sensory deficit Expanded Neurological exam: Present: protecting the airway Speech: Present: fluid speech Cranial nerves: EOM's Intact: Normal Motor strength exam: RUE: 5, LUE: 5, RLE: 5, LLE: 5 Eye Response: (4) open spontaneously Motor Response: (6) obeys commands Verbal Response: (5) oriented Psychiatric exam: Present: flat affect Skin exam: Present: normal color Course Vital Signs 10/01/17 15:36 Temperature 98.2 F Pulse Rate 76 Respiratory 18 Rate Blood Pressure 108/70 O2 Sat by Pulse 99 Oximetry EKG Findings - EKG Comments: EKG Findings:: Normal sinus rhythm 61. HI 150. QRS 106. QT 406. QTc 408. Normal axis. Normal QRS. No acute ST change. Medical Decision Making - Medical Decision Making Case discussed in detail with Dr. Vanegas, who does recommend increasing Vimpat now to a dose of 100 mg twice a day. Patient reevaluated and resting comfortably in bed. Patient and family updated on results and plan and need for follow-up. Patient states he does have enough Vimpat to make the change in dosing. - Lab Data Result diagrams: 10/01/17 16:20 10/01/17 16:20 Lab Results 10/01/17 10/01/17 10/01/17 Range/Units 16:20 16:20 16:20 WBC 9.2 (3.8-10.6) k/uL RBC 5.34 (4.30-5.90) m/uL Hgb 16.9 (13.0-17.5) gm/dL Hct 48.8 (39.0-53.0) % MCV 91.4 (80.0-100.0) fL MCH 31.7 (25.0-35.0) pg MCHC 34.7 (31.0-37.0) g/dL RDW 13.1 (11.5-15.5) % Plt Count 310 (150-450) k/uL Neutrophils % 65 % Lymphocytes % 28 % Monocytes % 4 % Eosinophils % 1 % Basophils % 0 % Neutrophils # 6.0 (1.3-7.7) k/uL Lymphocytes # 2.5 (1.0-4.8) k/uL Monocytes # 0.4 (0-1.0) k/uL Eosinophils # 0.1 (0-0.7) k/uL Basophils # 0.0 (0-0.2) k/uL Sodium 141 (137-145) mmol/L Potassium 5.2 H (3.5-5.1) mmol/L Chloride 104 (98-107) mmol/L Carbon Dioxide 27 (22-30) mmol/L Anion Gap 10 mmol/L BUN 8 L (9-20) mg/dL Creatinine 1.14 (0.66-1.25) mg/dL Est GFR (CKD-EPI)AfAm >90 (>60 ml/min/1.73 sqM) Est GFR (CKD-EPI)NonAf 81 (>60 ml/min/1.73 sqM) Glucose 81 (74-99) mg/dL Calcium 9.8 (8.4-10.2) mg/dL Magnesium 2.1 (1.6-2.3) mg/dL Total Bilirubin 0.6 (0.2-1.3) mg/dL AST 31 (17-59) U/L ALT 32 (21-72) U/L Alkaline Phosphatase 46 (38-126) U/L Total Protein 6.6 (6.3-8.2) g/dL Albumin 4.2 (3.5-5.0) g/dL Urine Color Light Yellow Urine Appearance Clear (Clear) Urine pH 7.0 (5.0-8.0) Ur Specific [place] 1.004 (1.001-1.035) Urine Protein Negative (Negative) Urine Glucose (UA) Negative (Negative) Urine Ketones Negative (Negative) Urine Blood Negative (Negative) Urine Nitrite Negative (Negative) Urine Bilirubin Negative (Negative) Urine Urobilinogen <2.0 (<2.0) mg/dL Ur Leukocyte Esterase Negative (Negative) Urine Opiates Screen Not Detected (NotDetected) Ur Oxycodone Screen Not Detected (NotDetected) Urine Methadone Screen Not Detected (NotDetected) Ur Propoxyphene Screen Not Detected (NotDetected) Ur Barbiturates Screen Not Detected (NotDetected) U Tricyclic Antidepress Not Detected (NotDetected) Ur Phencyclidine Scrn Not Detected (NotDetected) Ur Amphetamines Screen Not Detected (NotDetected) U Methamphetamines Scrn Not Detected (NotDetected) U Benzodiazepines Scrn Not Detected (NotDetected) Urine Cocaine Screen Not Detected (NotDetected) U Marijuana (THC) Screen Detected H (NotDetected) Serum Alcohol <10 mg/dL Disposition Clinical Impression: Recurrent seizures Disposition: HOME SELF-CARE Condition: Stable Instructions: Recurrent Seizures in Adults (ED) Additional Instructions: Please increased dose of Vimpat: New dose is 100 mg twice a day. Please follow- up with primary care physician as well as Dr. Vanegas in the next day or 2 for recheck. Return for fever, confusion, weakness, increased seizures, worsening symptoms or other concerns. Is patient prescribed a controlled substance at d/c from ED?: No Referrals: Delonte Short DO [Primary Care Provider] - 1-2 days Mendoza Vanegas MD [STAFF PHYSICIAN] - 1-2 days Time of Disposition: 17:10
[2017-10-01 16:26] LABS: Basophils % (A) 0 %; Eosinophils # (A) 0.1 k/uL (0-0.7); Eosinophils % (A) 1 %; HCT 48.8 % (39.0-53.0); HGB 16.9 gm/dL (13.0-17.5); Lymphocytes # (A) 2.5 k/uL (1.0-4.8); Lymphocytes % (A) 28 %; MCH 31.7 pg (25.0-35.0); MCHC 34.7 g/dL (31.0-37.0); MCV 91.4 fL (80.0-100.0); Monocytes # (A) 0.4 k/uL (0-1.0); Monocytes % (A) 4 %; Neutrophils % (A) 65 %; Platelet Count 310 k/uL (150-450); RBC 5.34 m/uL (4.30-5.90); RDW 13.1 % (11.5-15.5); WBC 9.2 k/uL (3.8-10.6)
[2017-10-01 16:30] LABS: Appearance,Urine Clear (Clear); Bilirubin,Urine Negative (Negative); Blood,Urine Negative (Negative); Color,Urine Light Yellow; Glucose,Urine (UA) Negative (Negative); Ketones,Urine Negative (Negative); Leukocyte Esterase,Urine Negative (Negative); Nitrite,Urine Negative (Negative); Protein,Urine Negative (Negative); Specific Gravity,Urine 1.004 (1.001-1.035); Urobilinogen,Urine <2.0 mg/dL (<2.0)
[2017-10-01 16:36] LABS: ALT 32 U/L (21-72); AST 31 U/L (17-59); Albumin 4.2 g/dL (3.5-5.0); Alcohol <10 mg/dL; Alkaline Phosphatase 46 U/L (38-126); Anion Gap 10 mmol/L; Blood Urea Nitrogen 8 mg/dL (9-20); Calcium 9.8 mg/dL (8.4-10.2); Carbon Dioxide 27 mmol/L (22-30); Chloride 104 mmol/L (98-107); Glucose 81 mg/dL (74-99); Magnesium 2.1 mg/dL (1.6-2.3); Sodium 141 mmol/L (137-145); Total Bilirubin 0.6 mg/dL (0.2-1.3); Total Protein 6.6 g/dL (6.3-8.2)
[2017-10-01 16:37] LABS: Amphetamine Screen,Urine Not Detected (NotDetected); Barbiturate Screen,Urine Not Detected (NotDetected); Benzodiazepines Screen,Urine Not Detected (NotDetected); Cocaine Screen,Urine Not Detected (NotDetected); Methadone Screen, Urine Not Detected (NotDetected); Opiate Screen,Urine Not Detected (NotDetected); Oxycodone Screen, Urine Not Detected (NotDetected); Phencyclidine Screen,Urine Not Detected (NotDetected); Tricyclic Antidepressant,Urine Not Detected (NotDetected); Urn Cannabinoid Scrn Detected (NotDetected)
[2017-10-01 16:40] LABS: Potassium 5.2 mmol/L (3.5-5.1)
[2017-10-01] MEDS ORDERED: LACOSAMIDE 50 MG TABLET PO STA (17:10)
[2017-10-01 17:37] VITALS: BP 111/67; PULSE 72; RESP 16
== END 2017-10-01 17:36 | disposition home or self-care (01) ==
LOC: EC 15:12
DX: G40.909 Epilepsy, unspecified, not intractable, without status epilepticus (principal); F17.200 Nicotine dependence, unspecified, uncomplicated
CPT/HCPCS: 36415; 93005; 80053; 80177; 83735; 85025; 81003; 80306; 80320; 99284; 96374; 96361; J2060

== ENCOUNTER 2017-11-26 14:12 | Observation (INO) | payer OTHER ==
[2017-11-26] MEDS ORDERED: SODIUM CHLORIDE 0.9% 1,000 ML IV STA (14:46)
--- NOTE | 2017-11-26 14:56 | ED ---
General Adult HPI - General Chief complaint: Seizure Stated complaint: seizure/memory loss Time Seen by Provider: 11/26/17 14:37 Source: patient, RN notes reviewed Mode of arrival: ambulatory Limitations: no limitations - History of Present Illness Initial comments: Patient is a pleasant 37-year-old male presenting to the emergency Department with girlfriend with concerns for drowsiness. Patient does have frequent seizures, approximately 2 per day lasting around a minute each. Patient is still under neurological care for this. Patient is pending a 72 hour video surveillance study. Patient did have a seizure yesterday with some memory impairment. Patient states he does feel drowsy and confused. Girlfriend provides majority of history. She states patient has been drowsy all day. He did sleep until noon today. Patient has no memory of events from yesterday. Patient denies any recent injury or new pain. Patient does not feel ill or febrile. Patient denies any alcohol or street drug use. - Related Data Home Medications Medication Instructions Recorded Confirmed Acetaminophen [Tylenol] 1,000 mg PO Q6H PRN 07/03/17 07/03/17 Previous Rx's Medication Instructions Recorded Lacosamide [Vimpat] 50 mg PO BID tablet 06/13/17 levETIRAcetam [Keppra] 1,000 mg PO Q12HR tab 06/13/17 Amitriptyline HCl [Elavil] 25 mg PO HS #30 tab 06/14/17 FLUoxetine HCL [PROzac] 40 mg PO DAILY #30 cap 06/14/17 Ibuprofen [Motrin] 800 mg PO TID PRN #90 tab 06/14/17 Nicotine 21Mg/24Hr Patch [Habitrol] 1 patch TRANSDERM DAILY #30 patch 06/14/17 OLANZapine [ZyPREXA] 5 mg PO TID #90 tab 06/14/17 Allergies Allergy/AdvReac Type Severity Reaction Status Date / Time No Known Allergies Allergy Verified 11/26/17 14:33 Review of Systems ROS Statement: Those systems with pertinent positive or pertinent negative responses have been documented in the HPI. ROS Other: All systems not noted in ROS Statement are negative. Constitutional: Denies: fever Eyes: Denies: eye pain ENT: Denies: ear pain Respiratory: Denies: cough Cardiovascular: Denies: chest pain Endocrine: Denies: fatigue Gastrointestinal: Denies: abdominal pain Genitourinary: Denies: dysuria Musculoskeletal: Denies: back pain Skin: Denies: rash Neurological: Reports: paresthesias (Patient has some paresthesia right side of the face), confusion Past Medical History Past Medical History: Seizure Disorder Additional Past Medical History / Comment(s): closed head injury,back pain History of Any Multi-Drug Resistant Organisms: None Reported Additional Past Surgical History / Comment(s): cervical disc fusion. Past Psychological History: Anxiety, Bipolar, Depression, PTSD Smoking Status: Current every day smoker Past Alcohol Use History: Occasional Past Drug Use History: Marijuana - Past Family History Mother Family Medical History: Unable to Obtain General Exam Limitations: no limitations General appearance: alert, in no apparent distress Head exam: Present: atraumatic Eye exam: Present: normal appearance, PERRL, EOMI. Absent: nystagmus ENT exam: Present: normal oropharynx Neck exam: Present: normal inspection. Absent: meningismus Respiratory exam: Present: normal lung sounds bilaterally Cardiovascular Exam: Present: regular rate, normal rhythm GI/Abdominal exam: Present: soft. Absent: tenderness, guarding Extremities exam: Present: normal inspection Neurological exam: Present: alert, CN II-XII intact. Absent: motor sensory deficit Expanded Patient oriented to: Present: person, place. Absent: time Cranial nerves: EOM's Intact: Normal, Facial Sensation: Normal Cerebellar function: Finger to Nose: Normal Sensory exam: Upper Extremity Light Touch: Normal, Lower Extremity Light Touch: Normal Motor strength exam: RUE: 5, LUE: 5, RLE: 5, LLE: 5 Eye Response: (4) open spontaneously Motor Response: (6) obeys commands Verbal Response: (4) confused conversation Psychiatric exam: Present: normal affect, normal mood Skin exam: Present: normal color Course Vital Signs 11/26/17 11/26/17 14:30 15:56 Temperature 98.3 F Pulse Rate 82 69 Respiratory 16 16 Rate Blood Pressure 135/77 109/59 O2 Sat by Pulse 99 97 Oximetry EKG Findings - EKG Comments: EKG Findings:: Normal sinus rhythm 65. GA 164. QRS 94. QT 412. QTC 428. Normal axis. Normal QRS. No acute ST change. Medical Decision Making - Medical Decision Making Patient reevaluated and unchanged. Friend who is present states patient did have another seizure in the emergency department. Patient and friend are updated on results and plan. Case was discussed in detail with Dr. lopez, who will admit for Dr. Short. - Lab Data Result diagrams: 11/26/17 15:03 11/26/17 15:03 Lab Results 11/26/17 11/26/17 11/26/17 Range/Units 15:03 15:03 15:03 WBC 7.1 (3.8-10.6) k/uL RBC 5.04 (4.30-5.90) m/uL Hgb 15.8 (13.0-17.5) gm/dL Hct 45.8 (39.0-53.0) % MCV 90.8 (80.0-100.0) fL MCH 31.4 (25.0-35.0) pg MCHC 34.5 (31.0-37.0) g/dL RDW 13.5 (11.5-15.5) % Plt Count 296 (150-450) k/uL Neutrophils % 57 % Lymphocytes % 31 % Monocytes % 8 % Eosinophils % 2 % Basophils % 1 % Neutrophils # 4.0 (1.3-7.7) k/uL Lymphocytes # 2.2 (1.0-4.8) k/uL Monocytes # 0.6 (0-1.0) k/uL Eosinophils # 0.1 (0-0.7) k/uL Basophils # 0.0 (0-0.2) k/uL Sodium 141 (137-145) mmol/L Potassium 4.1 (3.5-5.1) mmol/L Chloride 106 (98-107) mmol/L Carbon Dioxide 29 (22-30) mmol/L Anion Gap 6 mmol/L BUN 8 L (9-20) mg/dL Creatinine 1.00 (0.66-1.25) mg/dL Est GFR (CKD-EPI)AfAm >90 (>60 ml/min/1.73 sqM) Est GFR (CKD-EPI)NonAf >90 (>60 ml/min/1.73 sqM) Glucose 64 L (74-99) mg/dL POC Glucose (mg/dL) (75-99) mg/dL POC Glu Online Merchant ID Calcium 9.3 (8.4-10.2) mg/dL Total Bilirubin 0.4 (0.2-1.3) mg/dL AST 22 (17-59) U/L ALT 38 (21-72) U/L Alkaline Phosphatase 43 (38-126) U/L Total Protein 5.9 L (6.3-8.2) g/dL Albumin 3.6 (3.5-5.0) g/dL Urine Color Colorless Urine Appearance Clear (Clear) Urine pH 7.0 (5.0-8.0) Ur Specific [place] 1.002 (1.001-1.035) Urine Protein Negative (Negative) Urine Glucose (UA) 2+ H (Negative) Urine Ketones Negative (Negative) Urine Blood Negative (Negative) Urine Nitrite Negative (Negative) Urine Bilirubin Negative (Negative) Urine Urobilinogen <2.0 (<2.0) mg/dL Ur Leukocyte Esterase Negative (Negative) Urine Opiates Screen Not Detected (NotDetected) Ur Oxycodone Screen Not Detected (NotDetected) Urine Methadone Screen Not Detected (NotDetected) Ur Propoxyphene Screen Not Detected (NotDetected) Ur Barbiturates Screen Not Detected (NotDetected) U Tricyclic Antidepress Not Detected (NotDetected) Ur Phencyclidine Scrn Not Detected (NotDetected) Ur Amphetamines Screen Not Detected (NotDetected) U Methamphetamines Scrn Not Detected (NotDetected) U Benzodiazepines Scrn Not Detected (NotDetected) Urine Cocaine Screen Not Detected (NotDetected) U Marijuana (THC) Screen Detected H (NotDetected) Serum Alcohol <10 mg/dL 11/26/17 Range/Units 15:53 WBC (3.8-10.6) k/uL RBC (4.30-5.90) m/uL Hgb (13.0-17.5) gm/dL Hct (39.0-53.0) % MCV (80.0-100.0) fL MCH (25.0-35.0) pg MCHC (31.0-37.0) g/dL RDW (11.5-15.5) % Plt Count (150-450) k/uL Neutrophils % % Lymphocytes % % Monocytes % % Eosinophils % % Basophils % % Neutrophils # (1.3-7.7) k/uL Lymphocytes # (1.0-4.8) k/uL Monocytes # (0-1.0) k/uL Eosinophils # (0-0.7) k/uL Basophils # (0-0.2) k/uL Sodium (137-145) mmol/L Potassium (3.5-5.1) mmol/L Chloride (98-107) mmol/L Carbon Dioxide (22-30) mmol/L Anion Gap mmol/L BUN (9-20) mg/dL Creatinine (0.66-1.25) mg/dL Est GFR (CKD-EPI)AfAm (>60 ml/min/1.73 sqM) Est GFR (CKD-EPI)NonAf (>60 ml/min/1.73 sqM) Glucose (74-99) mg/dL POC Glucose (mg/dL) 80 (75-99) mg/dL POC Glu Online Merchant ID Rolan Ledezma Calcium (8.4-10.2) mg/dL Total Bilirubin (0.2-1.3) mg/dL AST (17-59) U/L ALT (21-72) U/L Alkaline Phosphatase (38-126) U/L Total Protein (6.3-8.2) g/dL Albumin (3.5-5.0) g/dL Urine Color Urine Appearance (Clear) Urine pH (5.0-8.0) Ur Specific [place] (1.001-1.035) Urine Protein (Negative) Urine Glucose (UA) (Negative) Urine Ketones (Negative) Urine Blood (Negative) Urine Nitrite (Negative) Urine Bilirubin (Negative) Urine Urobilinogen (<2.0) mg/dL Ur Leukocyte Esterase (Negative) Urine Opiates Screen (NotDetected) Ur Oxycodone Screen (NotDetected) Urine Methadone Screen (NotDetected) Ur Propoxyphene Screen (NotDetected) Ur Barbiturates Screen (NotDetected) U Tricyclic Antidepress (NotDetected) Ur Phencyclidine Scrn (NotDetected) Ur Amphetamines Screen (NotDetected) U Methamphetamines Scrn (NotDetected) U Benzodiazepines Scrn (NotDetected) Urine Cocaine Screen (NotDetected) U Marijuana (THC) Screen (NotDetected) Serum Alcohol mg/dL - Radiology Data Radiology results: report reviewed (Computed tomography scan of the brain shows no acute process) Disposition Clinical Impression: Altered mental status Disposition: ADMITTED IP TO THIS HOSP Is patient prescribed a controlled substance at d/c from ED?: No Referrals: Delonte Short DO [Primary Care Provider] - 1-2 days Decision Time: 16:58
[2017-11-26 15:21] LABS: Appearance,Urine Clear (Clear); Basophils % (A) 1 %; Bilirubin,Urine Negative (Negative); Blood,Urine Negative (Negative); Color,Urine Colorless; Eosinophils # (A) 0.1 k/uL (0-0.7); Eosinophils % (A) 2 %; Glucose,Urine (UA) 2+ (Negative); HCT 45.8 % (39.0-53.0); HGB 15.8 gm/dL (13.0-17.5); Ketones,Urine Negative (Negative); Leukocyte Esterase,Urine Negative (Negative); Lymphocytes # (A) 2.2 k/uL (1.0-4.8); Lymphocytes % (A) 31 %; MCH 31.4 pg (25.0-35.0); MCHC 34.5 g/dL (31.0-37.0); MCV 90.8 fL (80.0-100.0); Mean Platelet Volume 7.1; Monocytes # (A) 0.6 k/uL (0-1.0); Monocytes % (A) 8 %; Neutrophils % (A) 57 %; Nitrite,Urine Negative (Negative); Platelet Count 296 k/uL (150-450); Protein,Urine Negative (Negative); RBC 5.04 m/uL (4.30-5.90); RDW 13.5 % (11.5-15.5); Specific Gravity,Urine 1.002 (1.001-1.035); Urobilinogen,Urine <2.0 mg/dL (<2.0); WBC 7.1 k/uL (3.8-10.6)
[2017-11-26 15:33] LABS: Amphetamine Screen,Urine Not Detected (NotDetected); Barbiturate Screen,Urine Not Detected (NotDetected); Benzodiazepines Screen,Urine Not Detected (NotDetected); Cocaine Screen,Urine Not Detected (NotDetected); Methadone Screen, Urine Not Detected (NotDetected); Opiate Screen,Urine Not Detected (NotDetected); Oxycodone Screen, Urine Not Detected (NotDetected); Phencyclidine Screen,Urine Not Detected (NotDetected); Tricyclic Antidepressant,Urine Not Detected (NotDetected); Urn Cannabinoid Scrn Detected (NotDetected)
[2017-11-26 15:38] LABS: ALT 38 U/L (21-72); AST 22 U/L (17-59); Albumin 3.6 g/dL (3.5-5.0); Alcohol <10 mg/dL; Alkaline Phosphatase 43 U/L (38-126); Anion Gap 6 mmol/L; Blood Urea Nitrogen 8 mg/dL (9-20); Calcium 9.3 mg/dL (8.4-10.2); Carbon Dioxide 29 mmol/L (22-30); Chloride 106 mmol/L (98-107); Glucose 64 mg/dL (74-99); Potassium 4.1 mmol/L (3.5-5.1); Sodium 141 mmol/L (137-145); Total Bilirubin 0.4 mg/dL (0.2-1.3); Total Protein 5.9 g/dL (6.3-8.2)
--- NOTE | 2017-11-26 15:47 | CT ---
EXAMINATION TYPE: CT brain wo con DATE OF EXAM: 11/26/2017 COMPARISON: Prior CT brain 06/10/2017 HISTORY: Altered mental status CT DLP: 1046.6 mGycm. Automated Exposure Control for Dose Reduction was Utilized. TECHNIQUE: CT scan of the head is performed without contrast. FINDINGS: There is no acute intracranial hemorrhage, mass effect, or midline shift identified. The ventricles and sulci are within normal limits in size. The globes are intact and the visualized sin uses are remarkable for minimal inflammatory change in the maxillary sinuses. IMPRESSION: No acute intracranial hemorrhage, mass effect, or midline shift is seen.
[2017-11-26 15:57] LABS: Glucose,Whole Blood 80 mg/dL (75-99)
[2017-11-26] MEDS ORDERED: NALOXONE 0.4 MG/ML 1 ML VIAL IV PRN (16:59)
[2017-11-26] MEDS ORDERED: LORazepam 2 MG/ML INJ IV PRN (16:59)
[2017-11-26 18:09] VITALS: BMI 28.5
[2017-11-26] MEDS ORDERED: HYDROcodone/APAP 7.5-325MG 1 EACH TAB PO PRN (18:54)
[2017-11-26] MEDS ORDERED: ONDANSETRON 4 MG/2 ML VIAL IVP PRN (18:55)
[2017-11-26] MEDS: LACOSAMIDE 50 MG TABLET PO SCH (20:39)
[2017-11-26] MEDS: levETIRAcetam 500 MG TAB PO SCH (20:39)
[2017-11-26] MEDS: PREGABALIN 100 MG CAP PO SCH (20:39)
[2017-11-26] MEDS: lamoTRIgine 100 MG TAB PO SCH (20:39)
[2017-11-26] MEDS ORDERED: DULoxetine HCL 30 MG CAPSULE.DR PO SCH (21:00)
[2017-11-26] MEDS ORDERED: DULoxetine HCL 60 MG CAPSULE.DR PO SCH (21:00)
--- NOTE | 2017-11-26 21:18 | P.CNNES ---
History of Present Illness Consult date: 11/26/17 Reason for Consult: This patient is a 37-year-old male admitted with seizure disorder. History of Present Illness: This patient is a 37-year-old right-handed white male who has a history of underlying intractable seizure disorder. Apparently he has been evaluated by Dr. Vanegas and has history of underlying seizure disorder following major closed head injury which she suffered in 2010. According to the patient he suffered a fall off of a ladder and sustained major head trauma as well as cervical spine injury which requires several cervical spine surgeries. Following his head trauma he has been having intractable seizures. He is currently on 3 anticonvulsant medications including Keppra, Vimpat, and Lamictal. He states he takes all of his medications on a regular basis. He also has a history of underlying bipolar disorder for which she is taking Prozac and Zyprexa. Patient apparently had a seizure yesterday and was slowly coming out of the event but has been having seizures on a regular basis. This most recent seizure caused him to have memory loss which was noted by his girlfriend. Apparently she decided to bring him to the emergency room today as he continues to have episodes of cognitive impairment and memory loss. According to the girlfriend in the ER she told the physician Dr. Dominguez that he has frequent seizures may be 1 or 2 a day lasting 1 minute each. She does not bring him to the ER unless his seizures last more than 5 minutes in duration. He states he was last hospitalized about a month ago for seizures. Patient states he is to undergo a 3 day EEG monitoring but is not aware when or where this is to be done. He is to follow-up with Dr. Vanegas. We will obtain stat levels on all of his anticonvulsant medications today and we'll obtain an EEG tomorrow. He should follow-up with Dr. Vanegas in terms of long-term EEG monitoring. Patient is now admitted and neurology has been consulted for further evaluation and recommendations. Review of Systems Constitutional: Denies chills, Denies fever Eyes: denies blurred vision, denies pain Ears, nose, mouth and throat: Denies headache, Denies sore throat Cardiovascular: Denies chest pain, Denies shortness of breath Respiratory: Denies cough Gastrointestinal: Denies abdominal pain, Denies diarrhea, Denies nausea, Denies vomiting Musculoskeletal: Denies myalgias Integumentary: Denies pruritus, Denies rash Neurological: Reports change in mentation, Reports confusion, Reports convulsions, Reports memory loss, Reports seizures, Reports syncope, Denies numbness, Denies weakness Psychiatric: Reports memory loss, Reports mood swings, Denies anxiety, Denies depression Endocrine: Denies fatigue, Denies weight change Past Medical History Past Medical History: Seizure Disorder Additional Past Medical History / Comment(s): closed head injury 2010,back pain , sz disoder diagnosed a year ago, History of Any Multi-Drug Resistant Organisms: None Reported Additional Past Surgical History / Comment(s): cervical disc fusion. Past Psychological History: Anxiety, Bipolar, Depression, PTSD Smoking Status: Current every day smoker Past Alcohol Use History: None Reported Past Drug Use History: Marijuana - Past Family History Mother Family Medical History: Unable to Obtain Father Family Medical History: Diabetes Mellitus Medications and Allergies Home Medications Medication Instructions Recorded Confirmed Type DULoxetine HCL [Cymbalta] 30 mg PO HS 11/26/17 11/26/17 History DULoxetine HCL [Cymbalta] 60 mg PO HS 11/26/17 11/26/17 History HYDROcodone/APAP 7.5-325MG [[place] 1 tab PO TID PRN 11/26/17 11/26/17 History 7.5-325] Lacosamide [Vimpat] 100 mg PO BID 11/26/17 11/26/17 History Pregabalin [Lyrica] 100 mg PO BID 11/26/17 11/26/17 History lamoTRIgine [LaMICtal] 100 mg PO BID 11/26/17 11/26/17 History levETIRAcetam [Keppra] 1,000 mg PO Q12HR 11/26/17 11/26/17 History Allergies Allergy/AdvReac Type Severity Reaction Status Date / Time No Known Allergies Allergy Verified 11/26/17 18:09 Physical Examination - Vital Signs Vital Signs: Vital Signs Temp Pulse Pulse Resp BP BP Pulse Ox 11/26/17 20:00 98.2 F 71 16 130/73 97 11/26/17 17:48 98.2 F 67 16 122/79 98 11/26/17 17:29 98.3 F 73 18 134/81 98 11/26/17 15:56 69 16 109/59 97 11/26/17 14:30 98.3 F 82 16 135/77 99 Intake and Output 11/26/17 11/26/17 11/26/17 06:59 14:59 22:59 Intake Total 540 Output Total 520 Balance 20 Intake: Oral 540 Output: Urine 520 Other: Voiding Method Toilet Urinal # Voids 1 # Bowel Movements 0 # Emeses 0 Weight 95.527 kg 95.527 kg - Constitutional General appearance: average body habitus, cooperative - EENT EENT: PERRL, mucous membranes moist - Respiratory Respiratory: lungs clear, normal breath sounds - Cardiovascular Cardiovascular: regular rate, normal S1, normal S2 Extremities: no peripheral edema bilaterally - Gastrointestinal Gastrointestinal: normoactive bowel sounds - Integumentary Integumentary: normal - Neurologic Cranial nerve examination: PERRL, EOMI, VFF, V1/V2/V3 grossly intact, face symmetric, tongue midline, intact gag reflex, intact corneal reflex, normal palatal elevation Speech examination: intact Sensorimotor examination: intact Motor examination - right side: 4/5: biceps, triceps, wrist flexion, wrist extension, topographical surveyor, hip flexors, knee extensors, dorsiflexion, toe extension (EHL) , plantarflexion Motor examination - left side: 4/5: biceps, triceps, wrist flexion, wrist extension, topographical surveyor, hip flexors, knee extensors, dorsiflexion, toe extension (EHL) , plantarflexion Detailed sensory examination: intact Reflex and gait examination: intact Reflexes: 1+: ankle, bicep, knee, tricep - Musculoskeletal Musculoskeletal: no pain - Psychiatric Psychiatric: mood/affect appropriate, depressed, cooperative Results - Laboratory Findings CBC and BMP: 11/26/17 15:03 11/26/17 15:03 Abnormal Lab Findings: Abnormal Labs 11/26/17 11/26/17 15:03 15:03 BUN 8 L Glucose 64 L Total Protein 5.9 L Urine Glucose (UA) 2+ H U Marijuana (THC) Screen Detected H Assessment and Plan (1) Intractable seizure disorder Current Visit: No Status: Acute Code(s): G40.919 - EPILEPSY, UNSP, INTRACTABLE, WITHOUT STATUS EPILEPTICUS SNOMED Code(s): 466391085 (2) Acute encephalopathy Current Visit: Yes Status: Acute Code(s): G93.40 - ENCEPHALOPATHY, UNSPECIFIED SNOMED Code(s): 71527247 (3) Bipolar disorder Current Visit: Yes Status: Acute Code(s): F31.9 - BIPOLAR DISORDER, UNSPECIFIED SNOMED Code(s): 13295474 (4) History of fusion of cervical spine Current Visit: No Status: Acute Code(s): Z98.1 - ARTHRODESIS STATUS SNOMED Code(s): 4737520931822 (5) Failed cervical fusion Current Visit: No Status: Chronic Code(s): T84.9XXA - UNSP COMP OF INTERNAL ORTHOPEDIC PROSTH DEV/GRFT, INIT SNOMED Code(s): 1459469 (6) PTSD (post-traumatic stress disorder) Current Visit: No Status: Chronic Code(s): F43.10 - POST-TRAUMATIC STRESS DISORDER, UNSPECIFIED SNOMED Code(s): 68095304 Plan: This patient is a 37-year-old male who was admitted with symptoms of acute memory loss and long history of intractable seizures. Apparently he has been having one or 2 seizures a day lasting 1 minute in duration. This was obtained from the ER note from his girlfriend. This was the reason for bringing him to the ER today. He is being followed in the outpatient neurology clinic by Dr. Vanegas. He is supposedly to have epilepsy monitoring for further evaluation of his events. He was brought in and is now admitted to hospital after undergoing a computed tomography scan of the brain today the results of which indicated no acute intracranial hemorrhage or mass effect. Patient has multiple complex medical issues including posttraumatic stress disorder. Is unclear if this is also contributing to his current symptoms. We have ordered stat levels of all of his anticonvulsant medications which include heparin, Lamictal, and Vimpat. These levels are still pending and should take 3 days to return from the laboratory despite being ordered a stat blood levels. We will obtain a routine EEG tomorrow for further evaluation. Would continue with seizure precautions. May consider psychiatry consultation as well given his history of bipolar disorder and posttraumatic stress disorder. His overall prognosis at this time remains very guarded. Time with Patient: Greater than 30
--- NOTE | 2017-11-27 09:07 | HP ---
HISTORY AND PHYSICAL DATE OF ADMISSION: 11/26/2017 DATE OF SERVICE: 11/26/2017 PRESENT COMPLAINT: Seizure. HISTORY OF PRESENTING COMPLAINT: This is a patient I saw yesterday evening. The patient follows with Dr. Delonte Short as a family doctor and Dr. Vanegas as a neurologist. The patient does take Vimpat and Keppra for seizure medications. The patient's chronic stable medical conditions include posttraumatic stress disorder, bipolar disorder, chronic neck pain from prior cervical surgery, some radicular pain at C5-C6. The patient at baseline has 1 or 2 small seizures a day. The patient stated his fiancee told him that he was working on his father's car and came back inside the house and then he had a generalized tonic-clonic seizure. Afterwards, patient had no recollection of the fact that he worked in his father's car. Today on the day of admission, the patient had no recollection of what he had done in the morning time and hence he was brought in. The patient had been compliant with his medications. Currently lying in bed, able answer questions though slightly slow. Denies any fever or chills. Dr. Mckeon, neurologist on-call, was consulted. REVIEW OF SYSTEMS: CONSTITUTIONAL: Tired. HEENT: None. RESPIRATORY: None. CARDIOVASCULAR: None. GASTROINTESTINAL: None. GENITOURINARY: None. MUSCULOSKELETAL: Chronic neck pain. DERMATOLOGICAL: None. HEMATOLOGIC: None. LYMPHATIC: None, PSYCHIATRY: Depressed, but not nonsuicidal. NEUROLOGICAL: As above. No focal symptoms currently. PAST MEDICAL HISTORY: Epilepsy, closed head injury, bipolar disorder, PTSD. PAST SURGICAL HISTORY: Cervical disc fusion. SOCIAL HISTORY: The patient continues to smoke a few cigarettes a day. Does medical marijuana in the form of . Lives with his girlfriend and a small child at home. FAMILY HISTORY: Reviewed, noncontributory to presentation. HOME MEDICATIONS: 1. Keppra 1000 mg q.12. 2. Lamictal 100 mg p.o. b.i.d. 3. Lyrica 100 mg b.i.d. 4. Vimpat 100 mg p.o. b.i.d. 5. [place] 7.5 one tablet t.i.d. p.r.n. 6. Cymbalta 60 mg at night and Cymbalta 30 mg at night. PHYSICAL EXAMINATION: On examination, vital signs on presentation, temperature 98.3, pulse 82, respiration 16, blood pressure 135/77, pulse ox 99% on room air. GENERAL APPEARANCE: Average built, lying in bed, awake, EYES: Pupils equal. Conjunctivae normal. HENT: External appearance of nose and ears normal. Oral cavity normal. NECK: JVD not raised. Mass not palpable. RESPIRATORY: Effort normal, Lungs are clear, CARDIOVASCULAR: First and second sounds normal. No edema. ABDOMEN: Soft, nontender. Liver and spleen not palpable. PSYCHIATRY: Alert and oriented x3. Mood and affect normal. INVESTIGATIONS: White count 7.1, hemoglobin 15.8. Potassium 4.1, BUN 8, creatinine 1. ASSESSMENT: 1. Recurrent epilepsy. 2. Chronic neck pain with prior history of cervical spine surgery. 3. Chronic nicotine dependence, Patient is active cigarette smoker. 4. Bipolar disorder, depressed, controlled. 5. Posttraumatic stress disorder. PLAN: Seizure precautions are in place. Neurology, Dr. Mckeon, was consulted. Home medications were continued pending Dr. Mckeon's further treatment. Questions were answered. EEG will be ordered. MMODL / IJN: [id number] /
[2017-11-27 10:06] VITALS: BP 123/65; PULSE 60; RESP 16; TEMP 97.1
[2017-11-27] MEDS: levETIRAcetam 500 MG TAB PO SCH (10:13)
[2017-11-27] MEDS: PREGABALIN 100 MG CAP PO SCH (10:13)
[2017-11-27] MEDS: LACOSAMIDE 50 MG TABLET PO SCH (10:13)
[2017-11-27] MEDS: lamoTRIgine 100 MG TAB PO SCH (10:13)
[2017-11-27] MEDS ORDERED: ACETAMINOPHEN TAB 325 MG TAB PO PRN (14:30)
--- NOTE | 2017-11-28 10:41 | PN ---
PROGRESS NOTE DATE OF SERVICE: 11/27/2017 This 37-year-old gentleman admitted with recurrent seizures. Neurology is following the patient. Medication adjusted. No chest pain or palpitations. No fever. PHYSICAL EXAMINATION: On exam, alert and oriented x3. Pulse 60, blood pressure 123/65, respirations 16, temperature 97.1, pulse ox 97% on room air. HEENT: Conjunctivae normal. NECK: No jugular venous distention. CARDIOVASCULAR: S1 and S2 muffled. RESPIRATORY: Breath sounds diminished at the bases. No rhonchi, no crackles. ABDOMEN: Soft, nontender. LEGS: No edema, no swelling. NERVOUS SYSTEM: No focal deficits. LABS: CBC, BMP noted. ASSESSMENT: 1. Acute recurrent epilepsy seizures. 2. Chronic neck pain. 3. History of nicotine dependence. 4. bipolar. 5. Posttraumatic stress disorder. RECOMMENDATIONS AND DISCUSSION: Recommend to continue current medications, continue symptomatic treatment. Otherwise, we will monitor the patient closely. Neurology evaluation. Further recommendations to follow. MMODL / IJN: [id number] /
--- NOTE | 2017-11-28 11:47 | DS ---
DISCHARGE SUMMARY FINAL DIAGNOSES: 1. Recurrent epilepsy, seizures. 2. Chronic neck pain. 3. History of nicotine dependence. 4. Bipolar. 5. History of posttraumatic stress disorder. DISCHARGE DISPOSITION: The patient LEFT THE HOSPITAL AGAINST MEDICAL ADVICE. HISTORY OF PRESENT ILLNESS: This is a 37-year-old gentleman with a past medical history of multiple medical problems, with seizures recurrent. Dr. Mckeon saw the patient and recommended psych evaluation and continue to follow but; however, the patient had LEFT THE HOSPITAL AGAINST MEDICAL ADVICE. Please refer to the patient's chart and Dr. Mckeon's notes for further information. Prognosis extremely guarded throughout the hospitalization. MMODL / IJN: [id number] /
== END 2017-11-27 15:00 | disposition left against medical advice (07) ==
LOC: EC 14:12 → 3SUR 16:59
PROVIDERS: ADMIT Hospitalist; ATTEND Hospitalist
DX: G40.919 Epilepsy, unspecified, intractable, without status epilepticus (principal); Z53.21 Procedure and treatment not carried out due to patient leaving prior to being seen by health care provider; G93.40 Encephalopathy, unspecified; G89.29 Other chronic pain; M54.2 Cervicalgia; F17.210 Nicotine dependence, cigarettes, uncomplicated; F31.9 Bipolar disorder, unspecified; F41.9 Anxiety disorder, unspecified; F43.10 Post-traumatic stress disorder, unspecified; Z79.899 Other long term (current) drug therapy; Z98.1 Arthrodesis status; Z87.820 Personal history of traumatic brain injury; Z83.3 Family history of diabetes mellitus
CPT/HCPCS: 96360 ×2; 99285; 36415; 94760; 93005; 80053; 80177; 85025; 81003; 80306; 80320; 70450; G0378 ×2; 80339

== ENCOUNTER 2023-11-22 16:35 | Inpatient (IN) | payer OTHER ==
--- NOTE | 2023-11-22 17:52 | ED ---
Eye Problem HPI - General Chief complaint: Eye Problems Stated complaint: Recheck labs Time Seen by Provider: 11/22/23 17:25 Source: patient, family - History of Present Illness Initial comments: 43-year-old male presenting with chief complaint of vision changes. Patient has had extremely blurry vision for about 1 week. This started after he had a trip and fall hitting his face on a tree. He did not lose consciousness and does not take blood thinners. Since then he has had soreness that is worse on the left side of each eye. Patient does have history of elevated intraocular pressures. Patient was seen at [facility] today for this, they were concerned for possible stroke and sent him to the ER for further evaluation. Patient has history of chronic neck pain, states that his neck pain has been worse since his fall. - Related Data Home Medications Medication Instructions Recorded Confirmed DULoxetine HCL [Cymbalta] 30 mg PO HS 11/26/17 11/26/17 DULoxetine HCL [Cymbalta] 60 mg PO HS 11/26/17 11/26/17 HYDROcodone/APAP 7.5-325MG [Labadie 1 tab PO TID PRN 11/26/17 11/26/17 7.5-325] Lacosamide [Vimpat] 100 mg PO BID 11/26/17 11/26/17 Pregabalin [Lyrica] 100 mg PO BID 11/26/17 11/26/17 lamoTRIgine [LaMICtal] 100 mg PO BID 11/26/17 11/26/17 levETIRAcetam [Keppra] 1,000 mg PO Q12HR 11/26/17 11/26/17 Allergies Allergy/AdvReac Type Severity Reaction Status Date / Time No Known Allergies Allergy Verified 11/22/23 16:52 Review of Systems ROS Statement: Those systems with pertinent positive or pertinent negative responses have been documented in the HPI. ROS Other: All systems not noted in ROS Statement are negative. Past Medical History Past Medical History: Seizure Disorder Additional Past Medical History / Comment(s): closed head injury 2010,back pain, sz disoder diagnosed a year ago, History of Any Multi-Drug Resistant Organisms: None Reported Additional Past Surgical History / Comment(s): cervical disc fusion. Past Psychological History: Anxiety, Bipolar, Depression, PTSD Past Alcohol Use History: None Reported Past Drug Use History: Marijuana - Past Family History Mother Family Medical History: Unable to Obtain Father Family Medical History: Diabetes Mellitus General Exam General appearance: alert, in no apparent distress Head exam: Present: atraumatic, normocephalic Eye exam: Present: EOMI Pupils: Present: mydriatic (Patient did have his eyes dilated today) Expanded Visual acuity (R) = 20/: 100 Visual acuity (L) = 20/: 70 With correction: No IOP (R) in mmH IOP (L) in mmH Neck exam: Present: normal inspection Respiratory exam: Absent: respiratory distress Neurological exam: Present: alert, oriented X3 Expanded Patient oriented to: Present: person, place, time Speech: Present: fluid speech Eye Response: (4) open spontaneously Motor Response: (6) obeys commands Verbal Response: (5) oriented [place] Total: 15 Psychiatric exam: Present: normal affect, normal mood Skin exam: Present: warm, dry Course Vital Signs 11/22/23 16:49 Temperature 98.1 F Pulse Rate 116 H Respiratory 18 Rate Blood Pressure 148/97 O2 Sat by Pulse 99 Oximetry Medical Decision Making - Medical Decision Making Was pt. sent in by a medical professional or institution (, PA, SUPERVISOR FINISHING DEPARTMENT, urgent care, hospital, or intermediate...) When possible be specific @ -Sent from [facility] Did you speak to anyone other than the patient for history (EMS, parent, family, police, friend...)? What history was obtained from this source @ -No Did you review nursing and triage notes (agree or disagree)? Why? @ -I reviewed and agree with nursing and triage notes Were old charts reviewed (outside hosp., previous admission, EMS record, old EKG, old radiological studies, urgent care reports/EKG's, intermediate records)? Report findings @ -No old charts were reviewed Differential Diagnosis (chest pain, altered mental status, abdominal pain women, abdominal pain men, vaginal bleeding, weakness, fever, dyspnea, syncope, headache, dizziness, GI bleed, back pain, seizure, CVA, palpatations, mental health, musculoskeletal)? @ -Differential CVA Ischemic stroke, hemorrhagic stroke, brain tumor, atypical migraine, Wernicke's encephalopathy, seizure, multiple sclerosis, meningitis, encephalitis, hypoglycemia, Guillain-Tay, electrolytes disturbance, myasthenia gravis.... This is not meant to be an all-inclusive list EKG interpreted by me (3pts min.). @ -EKG shows sinus rhythm ventricular rate 96. AL interval 159. QRS 105. QT 353. QTc 406. X-rays interpreted by me (1pt min.). @ -None done CT interpreted by me (1pt min.). @ -CT shows no acute intracranial process. No evidence of cervical spine fracture. Mild multilevel degenerative disc disease. Postsurgical changes spine with hardware intact. U/S interpreted by me (1pt. min.). @ -None done What testing was considered but not performed or refused? (CT, X-rays, U/S, labs)? Why? @ -None What meds were considered but not given or refused? Why? @ -None Did you discuss the management of the patient with other professionals (professionals i.e. , PA, SUPERVISOR FINISHING DEPARTMENT, lab, RT, psych nurse, social worker palliative care, commercial driver, teacher, credit review officer, medical case manager)? Give summary @ -I spoke with the [facility] provider on-call who accepted admission Was smoking cessation discussed for >3mins.? @ -No Was critical care preformed (if so, how long)? @ -No Were there social determinants of health that impacted care today? How? (Homele ssness, low income, unemployed, alcoholism, drug addiction, transportation, low edu. Level, literacy, decrease access to med. care, nursing home, rehab)? @ -No Was there de-escalation of care discussed even if they declined (Discuss DNR or withdrawal of care, Hospice)? DNR status @ -No What co-morbidities impacted this encounter? (DM, HTN, Smoking, COPD, CAD, Cancer, CVA, ARF, Chemo, Hep., AIDS, mental health diagnosis, sleep apnea, morbid obesity)? @ -None Was patient admitted / discharged? Hospital course, mention meds given and route, prescriptions, significant lab abnormalities, going to OR and other pertinent info. @ -43-year-old male presenting with chief complaint of vision loss. Patient was sent by his insole filler for noncongruous left homonymous hemianopsia. History and physical exam are conducted. CT shows no acute intracranial process. Patient will be admitted for evaluation by neurology. He is agreeable with this plan. I discussed this case with my attending Dr. Haywood Undiagnosed new problem with uncertain prognosis? @ -No Drug Therapy requiring intensive monitoring for toxicity (Heparin, Nitro, Insulin, Cardizem)? @ -No Were any procedures done? @ -No Diagnosis/symptom? @ -Left homonymous hemianopsia Acute, or Chronic, or Acute on Chronic? @ -Acute Uncomplicated (without systemic symptoms) or Complicated (systemic symptoms)? @ -Complicated Side effects of treatment? @ -No Exacerbation, Progression, or Severe Exacerbation? @ -No Poses a threat to life or bodily function? How? (Chest pain, USA, DC, pneumonia, PE, COPD, DKA, ARF, appy, cholecystitis, CVA, Diverticulitis, Homicidal, Suicidal, threat to staff... and all critical care pts) @ -Yes - Lab Data Result diagrams: 11/22/23 18:09 11/22/23 18:09 Lab Results 11/22/23 11/22/23 11/22/23 Range/Units 18:09 18:09 18:09 WBC 9.4 (3.8-10.6) k/uL RBC 5.48 (4.30-5.90) m/uL Hgb 17.2 (13.0-17.5) gm/dL Hct 51.3 (39.0-53.0) % MCV 93.7 (80.0-100.0) fL MCH 31.4 (25.0-35.0) pg MCHC 33.6 (31.0-37.0) g/dL RDW 13.8 (11.5-15.5) % Plt Count 387 (150-450) k/uL MPV 7.5 Neutrophils % 69 % Lymphocytes % 25 % Monocytes % 4 % Eosinophils % 1 % Basophils % 0 % Neutrophils # 6.5 (1.3-7.7) k/uL Lymphocytes # 2.3 (1.0-4.8) k/uL Monocytes # 0.4 (0-1.0) k/uL Eosinophils # 0.1 (0-0.7) k/uL Basophils # 0.0 (0-0.2) k/uL PT 10.2 (10.0-12.5) sec INR 0.9 (<1.2) APTT 25.2 (22.0-30.0) sec Sodium 139 (137-145) mmol/L Potassium 4.6 (3.5-5.1) mmol/L Chloride 102 (98-107) mmol/L Carbon Dioxide 29 (22-30) mmol/L Anion Gap 8 mmol/L BUN 9 (9-20) mg/dL Creatinine 0.95 (0.66-1.25) mg/dL Est GFR (CKD-EPI)AfAm >90 (>60 ml/min/1.73 sqM) Est GFR (CKD-EPI)NonAf >90 (>60 ml/min/1.73 sqM) Glucose 121 H (74-99) mg/dL Calcium 9.9 (8.4-10.2) mg/dL Total Bilirubin 0.4 (0.2-1.3) mg/dL AST 25 (17-59) U/L ALT 25 (4-49) U/L Alkaline Phosphatase 51 (38-126) U/L Creatine Kinase 105 (55-170) U/L Troponin I (0.000-0.034) ng/mL Total Protein 7.6 (6.3-8.2) g/dL Albumin 4.6 (3.5-5.0) g/dL 11/22/23 Range/Units 18:09 WBC (3.8-10.6) k/uL RBC (4.30-5.90) m/uL Hgb (13.0-17.5) gm/dL Hct (39.0-53.0) % MCV (80.0-100.0) fL MCH (25.0-35.0) pg MCHC (31.0-37.0) g/dL RDW (11.5-15.5) % Plt Count (150-450) k/uL MPV Neutrophils % % Lymphocytes % % Monocytes % % Eosinophils % % Basophils % % Neutrophils # (1.3-7.7) k/uL Lymphocytes # (1.0-4.8) k/uL Monocytes # (0-1.0) k/uL Eosinophils # (0-0.7) k/uL Basophils # (0-0.2) k/uL PT (10.0-12.5) sec INR (<1.2) APTT (22.0-30.0) sec Sodium (137-145) mmol/L Potassium (3.5-5.1) mmol/L Chloride (98-107) mmol/L Carbon Dioxide (22-30) mmol/L Anion Gap mmol/L BUN (9-20) mg/dL Creatinine (0.66-1.25) mg/dL Est GFR (CKD-EPI)AfAm (>60 ml/min/1.73 sqM) Est GFR (CKD-EPI)NonAf (>60 ml/min/1.73 sqM) Glucose (74-99) mg/dL Calcium (8.4-10.2) mg/dL Total Bilirubin (0.2-1.3) mg/dL AST (17-59) U/L ALT (4-49) U/L Alkaline Phosphatase (38-126) U/L Creatine Kinase (55-170) U/L Troponin I <0.012 (0.000-0.034) ng/mL Total Protein (6.3-8.2) g/dL Albumin (3.5-5.0) g/dL Disposition Clinical Impression: Left homonymous hemianopsia Disposition: ADMITTED IP TO THIS [facility] Condition: Fair Referrals: None,Stated [Primary Care Provider] - 1-2 days Time of Disposition: 19:34
[2023-11-22 18:19] LABS: Basophils % (A) 0 %; Eosinophils # (A) 0.1 k/uL (0-0.7); Eosinophils % (A) 1 %; HCT 51.3 % (39.0-53.0); HGB 17.2 gm/dL (13.0-17.5); Lymphocytes # (A) 2.3 k/uL (1.0-4.8); Lymphocytes % (A) 25 %; MCH 31.4 pg (25.0-35.0); MCHC 33.6 g/dL (31.0-37.0); MCV 93.7 fL (80.0-100.0); Mean Platelet Volume 7.5; Monocytes # (A) 0.4 k/uL (0-1.0); Monocytes % (A) 4 %; Neutrophils # (A) 6.5 k/uL (1.3-7.7); Neutrophils % (A) 69 %; Platelet Count 387 k/uL (150-450); RBC 5.48 m/uL (4.30-5.90); RDW 13.8 % (11.5-15.5); WBC 9.4 k/uL (3.8-10.6)
--- NOTE | 2023-11-22 18:36 | CT ---
EXAMINATION TYPE: CT brain cspine wo con CT DLP: 1372.6 mGycm, Automated exposure control for dose reduction was used. DATE OF EXAM: 11/22/2023 6:17 PM COMPARISON: 11/26/2017 CLINICAL INDICATION:Male, 43 years old with history of fall, vision loss; Syncope, neck pain TECHNIQUE: Brain: Multiple axial CT images of the brain were obtained without IV contrast. Cspine: Axial CT images from the skull base to the inferior aspect of T2 we obtained without intraven ous contrast. Coronal and sagittal reformatted images were also reviewed. . FINDINGS: Brain: Extra-axial spaces: No abnormal extra-axial fluid collections. Ventricular system: Within normal limits Cerebral parenchyma: No acute intraparenchymal hemorrhage or mass effect. The david-white junction is well differentiated. Cerebellum: Unremarkable. Mass effect: No evidence of midline shift. Intracranial vasculature: unremarkable Soft tissues: Normal. Calvarium/osseous structures: No depressed skull fracture. Paranasal sinuses and mastoid air cells: Clear. Visualized orbits: Orbital contents are intact. Cervical spine: Fracture: None. Osseous structures: Fixation hardware at C6 and C7 appears intact and present. Severe degeneration ch anges at the adjoining endplates of C5-C6. Multilevel degenerative disc disease changes with endplate spurring and disc osteophyte complex's. Vertebral alignment: Within normal limits. Spinal canal/Neural Foramina: No evidence of significant spinal canal narrowing. No evidence for sign ificant neural foraminal stenosis. Neck soft tissues: Prevertebral soft tissues are within normal limits. Other: The airway is patent. The lung apices are clear. IMPRESSION: 1. No acute intracranial process. 2. No evidence of cervical spine fracture. 3. Mild multilevel degenerative disc disease. 4. Post surgical changes spine with hardware intact.
[2023-11-22 18:38] LABS: INR 0.9 (<1.2); Partial Thromboplastin Time 25.2 sec (22.0-30.0); Prothrombin Time 10.2 sec (10.0-12.5)
[2023-11-22 18:51] LABS: ALT 25 U/L (4-49); AST 25 U/L (17-59); African American GFR (CKD) >90 (>60 ml/min/1.73 sqM); Albumin 4.6 g/dL (3.5-5.0); Alkaline Phosphatase 51 U/L (38-126); Anion Gap 8 mmol/L; Blood Urea Nitrogen 9 mg/dL (9-20); Calcium 9.9 mg/dL (8.4-10.2); Carbon Dioxide 29 mmol/L (22-30); Chloride 102 mmol/L (98-107); Creatine Kinase 105 U/L (55-170); Glucose 121 mg/dL (74-99); Non-African American GFR(CKD) >90 (>60 ml/min/1.73 sqM); Potassium 4.6 mmol/L (3.5-5.1); Sodium 139 mmol/L (137-145); Total Bilirubin 0.4 mg/dL (0.2-1.3); Total Protein 7.6 g/dL (6.3-8.2)
[2023-11-22] MEDS ORDERED: NALOXONE 0.4 MG/ML 1 ML VIAL IV PRN (19:34)
[2023-11-22] MEDS ORDERED: ACETAMINOPHEN TAB 325 MG TAB PO PRN (19:34)
[2023-11-22] MEDS: Acetaminophen-Codeine 300-30mg TAB PO PRN (21:04)
[2023-11-23 09:11] LABS: Basophils # (A) 0.1 k/uL (0-0.2); Basophils % (A) 2 %; Eosinophils # (A) 0.2 k/uL (0-0.7); Eosinophils % (A) 3 %; HCT 49.2 % (39.0-53.0); HGB 16.9 gm/dL (13.0-17.5); Lymphocytes # (A) 2.7 k/uL (1.0-4.8); Lymphocytes % (A) 36 %; MCH 31.8 pg (25.0-35.0); MCHC 34.3 g/dL (31.0-37.0); MCV 92.7 fL (80.0-100.0); Monocytes # (A) 0.6 k/uL (0-1.0); Monocytes % (A) 7 %; Neutrophils # (A) 3.8 k/uL (1.3-7.7); Neutrophils % (A) 50 %; Platelet Count 358 k/uL (150-450); WBC 7.5 k/uL (3.8-10.6)
[2023-11-23 09:23] LABS: ALT 25 U/L (4-49); AST 28 U/L (17-59); African American GFR (CKD) >90 (>60 ml/min/1.73 sqM); Albumin 4.6 g/dL (3.5-5.0); Albumin/Globulin Ratio 1.6; Alkaline Phosphatase 55 U/L (38-126); Anion Gap 12 mmol/L; Blood Urea Nitrogen 13 mg/dL (9-20); Calcium 9.7 mg/dL (8.4-10.2); Carbon Dioxide 21 mmol/L (22-30); Chloride 105 mmol/L (98-107); Globulin 2.9 g/dL; Glucose 101 mg/dL (74-99); Non-African American GFR(CKD) >90 (>60 ml/min/1.73 sqM); Potassium 4.5 mmol/L (3.5-5.1); Sodium 138 mmol/L (137-145); Total Bilirubin 0.5 mg/dL (0.2-1.3); Total Protein 7.5 g/dL (6.3-8.2)
[2023-11-23 09:28] LABS: INR 0.9 (<1.2); Prothrombin Time 10.1 sec (10.0-12.5)
[2023-11-23] MEDS: ASPIRIN 81 MG PO SCH (13:13)
--- NOTE | 2023-11-23 13:27 | US ---
EXAMINATION TYPE: US carotid duplex BILAT DATE OF EXAM: 11/23/2023 COMPARISON: CTa, US 2013 CLINICAL INDICATION: Male, 43 years old with history of stroke TIA; Stroke per order. Current smoker. TECHNIQUE: Carotid duplex ultrasound examination. Indirect Doppler criteria was utilized. FINDINGS: EXAM MEASUREMENTS: RIGHT: Peak Systolic Velocity (PSV) cm/sec ----- Right CCA: 87.8 ----- Right ICA: 84.3 ----- Right ECA: 94.1 ICA/CCA ratio: 1.0 RIGHT: End Diastole cm/sec ----- Right CCA: 26.3 ----- Right ICA: 29.3 ----- Right ECA: 30.3 LEFT: Peak Systolic Velocity (PSV) cm/sec ----- Left CCA: 103.1 ----- Left ICA: 101.8 ----- Left ECA: 88.9 ICA/CCA ratio: 1.0 LEFT: End Diastole cm/sec ----- Left CCA: 36.2 ----- Left ICA: 40.2 ----- Left ECA: 23.0 VERTEBRALS (direction of flow): Right Vertebral: Antegrade Left Vertebral: Antegrade Rhythm: Normal SUPERVISORY CBP OFFICER NOTES: No elevated velocities. Lymph node-appearing areas seen within bilateral neck. Right measures; 2.4 x 1.0 x 0.7 cm. Cortex measures 4.5 mm. Left measures 2.3 x 1.1 x 0.8 cm. Cortex measures 4.7 mm. IMPRESSION: 1. No hemodynamically significant internal carotid artery stenosis on either side. 2. Bilateral borderline enlarged cervical lymph nodes which may be reactive/post inflammatory. Recomm end clinical assessment. Ultrasound can also be performed in 6-8 weeks to ensure stability/resolution . Criteria for Assigning % of Stenosis / Diameter reduction (Estimation based on the indirect measurements of the internal carotid artery velocities (ICA PSV). 1. Normal (no stenosis)=ICA PSV < 125 cm/s: ratio < 2.0: ICA EDV<40 cm/s. 2. Less than 50% stenosis=ICA PSV < 125 cm/s: ratio < 2.0: ICA EDV<40 cm/s. 3. 50 to 69% stenosis=ICA PSV of 125 to 230 cm/s: ration 2.0 ? 4.0: ICA EDV 40-100 cm/s. 4. Greater than 70% stenosis to near occlusion= ICA PSV > 230 cm/s: ratio > 4.0: ICA EDV > 100 cm/s. 5. Near occlusion= ICA PSV velocities may be low or undetectable: variable ratio and ICA EDV. 6. Total occlusion=unable to detect flow.
--- NOTE | 2023-11-23 14:36 | P.CNNES ---
History of Present Illness Consult date: 11/23/23 Requesting physician: Eren Gimenez Reason for Consult: Left homonymous hemianopia History of Present Illness: Patient is a 43-year-old right-handed male came to the hospital yesterday at 4:35 PM, referred by his eye doctor because he was noticed to have "signs of CVA" in the eye. Patient states that on 11/14/2023 he was stepping over a fallen tree, when a dog ran under his feet and the leash caught his foot and he fell face forward on the tree. He broke his glasses. When he started the new glasses, he felt blurred vision, and it was hard to make letters and numbers and they would merged together, and it felt like those words were floating around on the paper. He also had some problems with peripheral vision. Therefore he went to see an test baker, who noticed some homonymous hemianopia and referred patient to ER for further evaluation. Patient denies any slurred speech, facial droop, focal weakness or numbness. Denies any balance issues. Vital signs on arrival blood pressure 148/97, pulse rate 116, temperature 98.1. EKG showed sinus rhythm. CT head showed no acute intracranial process. I personally reviewed CT head agree with the findings. CT of the cervical spine showed no evidence of cervical spine fracture. Mild multilevel degenerative disc disease. Postsurgical changes spine with hardware intact. Blood test shows normal CBC PT PTT, normal CMP, troponin, CK. Home medications none. Patient does not take any antiplatelet medication at home. He does take marijuana every day. Patient denies any history of hypertension or diabetes. He claims of having "high heart rate". Patient has smoked 2 pack/day for about 15 to 20 years, quit for a year and then started smoking again 5 cigarettes/day in the last 8 years. He does get migraines and takes Excedrin about 4 times a month. Patient states that in 2010, he fell off a ladder with significant musculoskeletal injuries. It messed up his back and neck. He states that he has "double disc fusion" in his neck. He suffered from fracture of both wrist, ankles from the fall. He he has residual issues from the fall, with chronic neck pain migraines, upper and lower "nerve damage". He follows up with [facility] and gets injection treatment and "burning of the nerves". He states that he walks fine and muscle strength is fine otherwise. He has history of cervical surgery in 2015. Review of Systems Constitutional: Denies chills, Denies fever Eyes: bilateral blurred vision, denies diplopia, denies loss of vision Ears: deny: decreased hearing, ear discharge Ears, nose, mouth and throat: Reports headache, Denies sore throat, Denies ishmael tigo Cardiovascular: Denies chest pain, Denies shortness of breath Respiratory: Denies cough, Denies excessive sputum Gastrointestinal: Denies abdominal pain, Denies diarrhea, Denies nausea, Denies vomiting Genitourinary: Denies dysuria, Denies incontinence Musculoskeletal: Reports low back pain, Reports neck pain Integumentary: Denies pruritus, Denies rash Neurological: Reports as per HPI Psychiatric: Reports anxiety, Reports depression Past Medical History Past Medical History: Seizure Disorder Additional Past Medical History / Comment(s): closed head injury 2010,back pain, sz disoder diagnosed a year ago, History of Any Multi-Drug Resistant Organisms: None Reported Additional Past Surgical History / Comment(s): cervical disc fusion. Past Psychological History: Anxiety, Bipolar, Depression, PTSD Smoking Status: Current some day smoker Past Alcohol Use History: None Reported Past Drug Use History: Marijuana - Past Family History Mother Family Medical History: Unable to Obtain Father Family Medical History: Diabetes Mellitus Medications and Allergies Home Medications Medication Instructions Recorded Confirmed Type No Known Home Medications 11/22/23 11/22/23 History Allergies Allergy/AdvReac Type Severity Reaction Status Date / Time No Known Allergies Allergy Verified 11/22/23 20:02 Physical Examination - Vital Signs Vital Signs: Vital Signs Temp Pulse Pulse Resp BP BP Pulse Ox 11/23/23 06:52 97.8 F 77 14 144/90 98 11/23/23 02:12 98.0 F 86 18 120/77 96 11/22/23 21:40 98.1 F 93 18 152/96 97 11/22/23 21:12 97.6 F 90 18 172/73 96 11/22/23 16:49 98.1 F 116 H 18 148/97 99 Intake and Output 11/22/23 11/23/23 11/23/23 22:59 06:59 14:59 Intake Total 140 Balance 140 Intake: Oral 140 Other: Voiding Method Toilet # Voids 1 Weight 117.934 kg Patient is a middle aged male, very pleasant, in no acute distress. Patient is alert awake oriented to time place and person. Speech and language functions are normal. Patient can name and repeat very well. No aphasia or dysarthria. Attention, concentration and fund of knowledge is adequate. On cranial nerve examination, pupils are equal, round and reacting to light, visual brock are full on confrontation, with no neglect on double simultaneous stimulation. I checked each eye individually and together, and did not notice a ny visual field deficits at all in any quadrants. Extraocular muscles are intact with no nystagmus. Face is symmetric, tongue protrudes to the midline. Palatal elevation and sensation normal, hearing and shoulder shrug normal, facial sensation normal. On muscle strength testing, there is no pronator drift and the strength is normal in arms and legs distally and proximally. Deep tendon reflexes are symmetric 1+ and plantars downgoing. Sensory to touch is equal with no neglect on double simultaneous stimulation. Cerebellar function showed no ataxia for [id number] testing. No dysdia dochokinesia. No ataxia for [id number] testing on either side. Tone and bulk of muscles normal. Gait deferred.. On general examination, there is no carotid bruit or murmur, S1-S2 audible. Chest is clear on consultation. Abdomen is soft nontender. No organomegaly, bowel sounds present. Peripheral pulses are present. No peripheral edema. Results - Laboratory Findings CBC and BMP: 11/23/23 08:46 11/23/23 08:46 Abnormal Lab Findings: Abnormal Labs 11/22/23 11/23/23 18:09 08:46 Carbon Dioxide 21 L Glucose 121 H 101 H Assessment and Plan Assessment: * Patient has developed some visual disturbance status post fall face forward, 11/14/2023 due to tripping on the dog leash. Electronic Scale Subassembler noted some visual field deficits (?left homonymous hemianopia), although patient's visual brock are completely normal on confrontation in either eye. No visual field deficits noted at the bedside. Rule out stroke/TIA * Tobacco use * History of fall off the ladder in 2010, with multiple musculoskeletal injuries. No significant deficits except for chronic neck pain. * History of cervical fusion in 2014. Plan: * MRI of the brain rule out CVA * Carotid Doppler was performed, which revealed no hemodynamically significant ICA stenosis on either side. Antegrade flow in both vertebral arteries. Some enlarged lymph nodes were noticed, which I would defer to IM. * Patient may need 2D echo, if CVA confirmed with MRI. * Fasting a.m. lipid panel, * Hemoglobin A1c * Start aspirin 81 mg daily for now. * Recommend complete tobacco cessation * Telemetry monitoring * Further management based upon MRI results. * DVT prophylaxis: Patient ambulatory. * Neurology will follow. Discussed with primary team. Thank you for the consult. Time with Patient: Greater than 30
--- NOTE | 2023-11-23 15:20 | P.HPIM ---
History of Present Illness H&P Date: 11/23/23 Chief Complaint: Loss of vision History of present illness; Jamie shaw 43-year-old male with past medical history of nonepileptic seizures presents with new vision loss. Patient symptoms began 9 days ago following fall with head striking log on ground. He reports tripping over leash while playing with his dog. Patient then noticed changes in vision which he describes as fogginess, which began the following day after evening lapse in eyeglass usage. Vision has progressively improved throughout this time, however patient still reports blurriness. Patient's significant other reports new mild speech delay. Patient reports absence of slurred speech, muscle weakness, facial droop, urinary incontinence, difficulty ambulating, new or worsening headache, dizziness, nausea, and vomiting during this time. Patient denies antiplatelet use. He has no other complaints at this time. Initial lab work done in the ER with elevated glucose 121. EKG done in the ER showed heart rate of 96, no ST segment elevation or depression seen, no T-wave inversions seen. CT head and cervical spine done showed no acute process Carotid ultrasound done shows no hemodynamically significant internal carotid artery stenosis on either side. Patient admitted to internal medicine service REVIEW OF SYSTEMS: CONSTITUTIONAL: No fever, no malaise, no fatigue. HEENT: No recent visual problems or hearing problems. Denied any sore throat. CARDIOVASCULAR: No chest pain, orthopnea, PND, no palpitations, no syncope. PULMONARY: No shortness of breath, no cough, no hemoptysis. GASTROINTESTINAL: No diarrhea, no nausea, no vomiting, no abdominal pain. NEUROLOGICAL: No headaches, no weakness, no numbness. HEMATOLOGICAL: Denies any bleeding or petechiae. GENITOURINARY: Denies any burning micturition, frequency, or urgency. MUSCULOSKELETAL/RHEUMATOLOGICAL: Denies any joint pain, swelling, or any muscle pain. ENDOCRINE: Denies any polyuria or polydipsia. The rest of the 14-point review of systems is negative. PHYSICAL EXAMINATION: GENERAL: The patient is alert and oriented x3, not in any acute distress. Well developed, well nourished. HEENT: Pupils are round and equally reacting to light. EOMI. No scleral icterus. No conjunctival pallor. Normocephalic, atraumatic. No pharyngeal erythema. No thyromegaly. CARDIOVASCULAR: S1 and S2 present. No murmurs, rubs, or gallops. PULMONARY: Chest is clear to auscultation, no wheezing or crackles. ABDOMEN: Soft, nontender, nondistended, normoactive bowel sounds. No palpable organomegaly. MUSCULOSKELETAL: No joint swelling or deformity. EXTREMITIES: No cyanosis, clubbing, or pedal edema. NEUROLOGICAL: No loss of central or peripheral vision noted. Gross neurological examination did not reveal any focal deficits. SKIN: No rashes. Assessment and plan #Acute vision loss likely secondary to mild TBI CT brain spine findings show no acute process - Carotid ultrasound shows no hemodynamically significant internal carotid artery stenosis bilateral EKG findings with no ST elevation or T wave abnormalities, or arrhythmias - CXR ordered MRI of brain ordered by neurology To rule out stroke/TIA Neurology consulted Monitor vital signs Monitor CBC Monitor CMP Continue telemetry monitoring Labs and medication were reviewed.. Continue same treatment. Continue with symptomatic treatment. Resume home medication. Monitor labs and vitals. DVT and GI prophylaxis as need. Further recommendations as per clinical course of the patient Dictation was produced using [employer] dictation software. please excuse any grammatical, word or spelling errors. Past Medical History Past Medical History: Seizure Disorder Additional Past Medical History / Comment(s): closed head injury 2010,back pain, sz disoder diagnosed a year ago, History of Any Multi-Drug Resistant Organisms: None Reported Additional Past Surgical History / Comment(s): cervical disc fusion. Past Psychological History: Anxiety, Bipolar, Depression, PTSD Smoking Status: Current some day smoker Past Alcohol Use History: None Reported Past Drug Use History: Marijuana - Past Family History Mother Family Medical History: Unable to Obtain Father Family Medical History: Diabetes Mellitus Medications and Allergies Home Medications Medication Instructions Recorded Confirmed Type No Known Home Medications 11/22/23 11/22/23 History Allergies Allergy/AdvReac Type Severity Reaction Status Date / Time No Known Allergies Allergy Verified 11/22/23 20:02 Physical Exam Vitals: Vital Signs Temp Pulse Pulse Resp BP BP Pulse Ox 11/23/23 06:52 97.8 F 77 14 144/90 98 11/23/23 02:12 98.0 F 86 18 120/77 96 11/22/23 21:40 98.1 F 93 18 152/96 97 11/22/23 21:12 97.6 F 90 18 172/73 96 11/22/23 16:49 98.1 F 116 H 18 148/97 99 Intake and Output 11/22/23 11/23/23 11/23/23 22:59 06:59 14:59 Other: # Voids 1 Weight 117.934 kg Results CBC & Chem 7: 11/23/23 08:46 11/23/23 08:46 Labs: Abnormal Lab Results - Last 24 Hours (Table) 11/22/23 Range/Units 18:09 Glucose 121 H (74-99) mg/dL Thrombosis Risk Factor Assmnt - Choose All That Apply Each Factor Represents 1 point: Age 41-60 years Thrombosis Risk Factor Assessment Total Risk Factor Score: 1 Thrombosis Risk Factor Assessment Level: Low Risk
[2023-11-23 15:27] LABS: Erythrocyte Sedimentation Rate 12 mm/Hr (0-15)
--- NOTE | 2023-11-23 16:28 | XR ---
EXAMINATION TYPE: XR chest 1V portable DATE OF EXAM: 11/23/2023 COMPARISON: 07/03/2017 INDICATION: PE TECHNIQUE: Single frontal view of the chest is obtained. FINDINGS: The heart size is normal. The pulmonary vasculature is normal. The lungs are clear. IMPRESSION: 1. No acute pulmonary process.
[2023-11-24 01:13] VITALS: TEMP 98
[2023-11-24 08:10] VITALS: BP 136/86; RESP 18
[2023-11-24 08:53] LABS: Basophils # (A) 0.05 X 10*3/uL (0.00-0.10); Basophils % (A) 0.7 %; Eosinophils # (A) 0.25 X 10*3/uL (0.04-0.35); Eosinophils % (A) 3.4 %; HCT 49.6 % (39.6-50.0); HGB 17.2 g/dL (13.0-17.0); Lymphocytes # (A) 3.11 X 10*3/uL (0.90-5.00); Lymphocytes % (A) 42.1 %; MCH 31.3 pg (27.0-32.0); MCHC 34.7 g/dL (32.0-37.0); MCV 90.3 FL (80.0-97.0); Mean Platelet Volume 10.2 FL (9.5-12.2); Monocytes # (A) 0.67 X 10*3/uL (0.20-1.00); Monocytes % (A) 9.1 %; NRBC Per 100 WBC 0 X 10*3/uL (0.00-0.01); Neutrophils # (A) 3.28 X 10*3/uL (1.80-7.70); Neutrophils % (A) 44.4 %; Platelet Count 368 X 10*3/uL (140-440); RBC 5.49 X 10*6/uL (4.40-5.60); RDW 13.2 % (11.5-14.5); WBC 7.38 X 10*3/uL (4.50-10.00)
[2023-11-24 08:54] LABS: BUN/Creat Ratio 15.36 Ratio (12.00-20.00); Blood Urea Nitrogen 16.9 mg/dL (9.0-27.0); Carbon Dioxide 26.8 mmol/L (21.6-31.8); Chloride 101 mmol/L (96-109); Glucose 103 mg/dL (70-110); LDL Cholesterol,Calculated 133.9 mg/dL (0.0-131.0); Potassium 4.8 mmol/L (3.5-5.5); Sodium 139 mmol/L (135-145)
[2023-11-24 08:55] LABS: ALT 24 U/L (10-49); AST 18 U/L (14-35); Albumin 4.6 g/dL (3.8-4.9); Alkaline Phosphatase 65 U/L (41-126); Calcium 9.7 mg/dL (8.7-10.3); Globulin 2.7 g/dL (1.6-3.3); Total Bilirubin 0.3 mg/dL (0.3-1.2); Total Protein 7.3 g/dL (6.2-8.2)
--- NOTE | 2023-11-24 10:32 | MR ---
EXAMINATION TYPE: MR brain wo con DATE OF EXAM: 11/24/2023 10:21 AM CLINICAL INDICATION:Male, 43 years old with history of stroke TIA; PHH, Left homonymous hemianopsia. COMPARISON: 11/26/2018. TECHNIQUE: Multi planar, multi sequence imaging was performed through the brain including: T1, T2, In version recovery, Diffusion weighted imaging, and gradient echo imaging. No gadolinium was given. FINDINGS: The david-white junctions, ventricular system, basal cisterns appear unremarkable. Midline structures show no abnormality. Diffusion-weighted imaging shows no evidence of restricted diffusion. The suscep tibility weighted images do not reveal any evidence for micro-hemorrhage. The bone marrow signal is within normal limits. Paranasal sinuses and mastoid air cells: No significant paranasal sinus disease. Visualized orbits: Orbital contents are intact. IMPRESSION: 1. No evidence of intracranial mass or acute/subacute infarct.
[2023-11-24 12:17] VITALS: PULSE 58
--- NOTE | 2023-11-24 13:15 | P.PN ---
Subjective Progress Note Date: 11/24/23 Patient was seen for a follow-up. Offers no complaints. Wants to go home. Objective - Vital Signs Vital signs: Vital Signs Temp 98.0 F 11/24/23 06:50 Pulse 58 L 11/24/23 12:12 Resp 18 11/24/23 06:50 BP 136/86 11/24/23 06:50 Pulse Ox 96 11/24/23 06:50 FiO2 Intake & Output 11/23/23 11/24/23 11/24/23 18:59 06:59 18:59 Intake Total 140 Balance 140 Intake: Oral 140 Other: Voiding Method Toilet Toilet # Voids 1 2 - Exam Completely nonfocal. Visual brock are full. - Labs CBC & Chem 7: 11/24/23 05:36 11/24/23 05:36 Labs: Abnormal Lab Results - Last 24 Hours (Table) 11/24/23 11/24/23 Range/Units 05:36 05:36 Hgb 17.2 H (13.0-17.0) g/dL Triglycerides 217.00 H (0.00-149.00) mg/dL Cholesterol 231.00 H (0.00-200.00) mg/dL LDL Cholesterol, Calc 133.9 H (0.0-131.0) mg/dL VLDL Cholesterol, Calc 43.40 H (5.00-40.00) mg/dL Assessment and Plan Assessment: * Patient has developed some visual disturbance status post fall face forward, 11/14/2023 due to tripping on the dog leash. Seafood Farmer noted some visual field deficits (?left homonymous hemianopia), although patient's visual brock are completely normal on confrontation in either eye. No visual field deficits noted at the bedside. Rule out stroke/TIA * Tobacco use * Hyperlipidemia * History of fall off the ladder in 2010, with multiple musculoskeletal injuries. No significant deficits except for chronic neck pain. * History of cervical fusion in 2014. Plan: * MRI of the brain revealed no evidence of intracranial mass, acute or subacute infarct. I personally reviewed MRI agree with the findings. * Carotid Doppler was performed, which revealed no hemodynamically significant ICA stenosis on either side. Antegrade flow in both vertebral arteries. Some enlarged lymph nodes were noticed, which I would defer to IM. * Patient may need 2D echo, if CVA confirmed with MRI. * Fasting a.m. lipid panel Cholesterol 231, LDL 133, HDL 53, triglycerides 217. We will start Lipitor 20 mg daily. * Hemoglobin A1c 5.3 * Start aspirin 81 mg daily for now. * Recommend complete tobacco cessation * Neurologically clear for discharge on aspirin 81 mg and Lipitor 20 mg daily. * Follow-up with inspector watch assembly as scheduled.
--- NOTE | 2023-11-24 15:43 | P.DS ---
Providers Date of admission: 11/22/23 19:35 Expected date of discharge: 11/24/23 Attending physician: Zaynab Allen Consults: 11/22/23 19:34 Consult Physician Urgent Consulting Provider: Janelle Potter Consult Reason/Comments: Left homonymous hemianopsia Do you want consulting provider notified?: Yes, Notify in am Primary care physician: Stated None - Discharge Diagnosis(es) (1) Hyperlipemia Status: Acute (2) Hyperlipemia, mixed Status: Acute Hospital Course: Discharge diagnoses; #Acute vision loss CT brain spine findings show no acute process - Carotid ultrasound shows no hemodynamically significant internal carotid artery stenosis bilateral, enlarged lymph nodes EKG findings with no ST elevation or T wave abnormalities, or arrhythmias - CXR no acute process MRI of brain with no evidence of intracranial mass, acute or subacute infarct. - Discussed tobacco cessation - Plan follow-up with security guard supervisor on d/c # Hyperlipidemia - Fasting a.m. lipid panel Cholesterol 231, LDL 133, HDL 53, triglycerides 217. - Lipitor 20 mg daily on d/c Hospital course; Jamie shaw 43-year-old male with past medical history of nonepileptic seizures presents with new vision loss. Patient symptoms began 9 days ago following fall with head striking log on ground. He reports tripping over leash while playing with his dog. Patient then noticed changes in vision which he describes as fogginess, which began the following day after evening lapse in eyeglass usage. Vision has progressively improved throughout this time, however patient still reports blurriness. Patient's significant other reports new mild speech delay. Patient reports absence of slurred speech, muscle weakness, facial droop, urinary incontinence, difficulty ambulating, new or worsening headache, dizziness, nausea, and vomiting during this time. Patient denies antiplatelet use. He has no other complaints at this time. Initial lab work done in the ER with elevated glucose 121. EKG done in the ER showed heart rate of 96, no ST segment elevation or d epression seen, no T-wave inversions seen. CT head and cervical spine done showed no acute process Carotid ultrasound done shows no hemodynamically significant internal carotid artery stenosis on either side. [id number] seen and examined at bedside. Patient reports improvement in vision each day since fall. CT brain and MRI brain with no evidence of mass acute or chronic infarct. Patient started on statin on discharge. Patient to follow-up with PCP for hyperlipidemia and enlarged lymph nodes. Patient to follow-up with security guard supervisor for vision loss. Patient to be discharged to home. PHYSICAL EXAMINATION: GENERAL: The patient is alert and oriented x3, not in any acute distress. Well developed, well nourished. HEENT: Pupils are round and equally reacting to light. EOMI. No scleral icterus. No conjunctival pallor. Normocephalic, atraumatic. No pharyngeal erythema. No thyromegaly. CARDIOVASCULAR: S1 and S2 present. No murmurs, rubs, or gallops. PULMONARY: Chest is clear to auscultation, no wheezing or crackles. ABDOMEN: Soft, nontender, nondistended, normoactive bowel sounds. No palpable organomegaly. MUSCULOSKELETAL: No joint swelling or deformity. EXTREMITIES: No cyanosis, clubbing, or pedal edema. NEUROLOGICAL: No loss of central or peripheral vision noted. Gross neurological examination did not reveal any focal deficits. SKIN: No rashes. Dictation was produced using [employer] dictation software. please excuse any grammatical, word or spelling errors. Patient Condition at Discharge: Good Plan - Discharge Summary Discharge Rx Participant: No New Discharge Prescriptions: New Atorvastatin [Lipitor] 20 mg PO DAILY 30 Days #30 tablet Discharge Medication List Atorvastatin [Lipitor] 20 mg PO DAILY 30 Days #30 tablet 11/24/23 [Rx] Follow up Appointment(s)/Referral(s): None,Stated [Primary Care Provider] - 1-2 days Discharge Disposition: HOME SELF-CARE
[2023-11-24] MEDS ORDERED: ATORVASTATIN 20 MG TAB PO SCH (21:00)
== END 2023-11-24 13:40 | disposition home or self-care (01) | DRG 82 ==
LOC: EC 16:35 → 4SSUR 19:35
PROVIDERS: ADMIT Hospitalist; ATTEND Hospitalist
DX: H53.462 Homonymous bilateral field defects, left side (principal); H54.7 Unspecified visual loss; G40.89 Other seizures; E78.2 Mixed hyperlipidemia; G89.29 Other chronic pain; M50.30 Other cervical disc degeneration, unspecified cervical region; F17.210 Nicotine dependence, cigarettes, uncomplicated; G43.909 Migraine, unspecified, not intractable, without status migrainosus; R73.9 Hyperglycemia, unspecified; R47.89 Other speech disturbances; R59.9 Enlarged lymph nodes, unspecified; W01.198A Fall on same level from slipping, tripping and stumbling with subsequent striking against other object, initial encounter; Z87.820 Personal history of traumatic brain injury; Z98.1 Arthrodesis status; Z79.899 Other long term (current) drug therapy; Z91.81 History of falling
CPT/HCPCS: 36415; 70450; 70551; 71045; 72125; 80053; 80061; 82550; 83036; 84484; 85025; 85610; 85652; 85730; 93005; 93880; 99285